=== PATIENT | male | born 1995 | race Caucasian/White ===

== ENCOUNTER 2020-12-21 10:45 | Emergency (ER) | payer BC ==
[~2020-12-21] VITALS: Ht 172.7 cm; Wt 85.0 kg
[~2020-12-21 10:45] MED LIST: CEPH-264 PO; HYDR-2761 PO; SULF1TAB23 PO
[2020-12-21] MEDS ORDERED: IV NORMAL SALINE 1000ML BAG 1,000 ML IV SCH (11:30)
[2020-12-21 11:47] LABS: BILIRUBIN,URINE SMALL (NEG); CLARITY,URINE CLEAR; COLOR,URINE AMBER; NITRITE,URINE NEGATIVE (NEG); PROTEIN,URINE NEGATIVE (NEG-TRACE); UROBILINOGEN,URINE 0.2 mg/dL (0.2 mg/dL)
--- NOTE | 2020-12-21 11:51 | RAD ---
EXAM: Chest, single view. HISTORY: Pain. COMPARISON: None. FINDINGS: A frontal view of the abdomen is obtained. There is a small amount of gas and stool within the colon. There is no evidence of bowel obstruction. IMPRESSION: Nonobstructive bowel gas pattern. Electronically signed by: Dinorah Robison MD (12/21/2020 11:49 AM) [id number]
[2020-12-21 11:57] LABS: BASO % 0 % (0-3); EOS % 0 % (0-3); HEMATOCRIT 48.2 % (39.0-53.0); HEMOGLOBIN 16.9 g/dL (13.0-17.5); LYMPH # 1.1 x10^3/uL (1.0-4.8); LYMPH % 12 % (24-48); MEAN CORPUSCULAR HEMOGLOBIN 31 pg (25-35); MEAN CORPUSCULAR HGB CONC 35 g/dL (31-37); MEAN CORPUSCULAR VOLUME 88 fL (79-100); MONO # 0.5 x10^3/uL (0.0-1.1); MONO % 6 % (0-9); NEUT % 81 % (31-73); PLATELET COUNT 198 x10^3/uL (140-400); RED BLOOD COUNT 5.48 x10^6/uL (4.30-5.70); RED CELL DISTRIBUTION WIDTH 12.8 % (11.5-14.5); WHITE BLOOD COUNT 8.6 x10^3/uL (4.0-11.0)
[2020-12-21] MEDS ORDERED: MORPHINE SULFATE 4 MG/ML VIAL. IV ONE (12:00)
[2020-12-21] MEDS ORDERED: ONDANSETRON PF 4 MG/2 ML VIAL. IVP ONE (12:00)
[2020-12-21 12:08] LABS: BACTERIA,URINE 0 /HPF (0-FEW); RBC,URINE 0 /HPF (0-2); WBC,URINE OCC /HPF (0-4)
[2020-12-21 12:10] LABS: CALCIUM 9.6 mg/dL (8.5-10.1); CREATININE 1.1 mg/dL (0.7-1.3); POTASSIUM 4.1 mmol/L (3.5-5.1)
[2020-12-21 12:17] LABS: ALBUMIN/GLOBULIN RATIO 1.9 (1.0-1.7); TOTAL BILIRUBIN 1.4 mg/dL (0.2-1.0); TOTAL PROTEIN 7.6 g/dL (6.4-8.2)
[2020-12-21] MEDS ORDERED: IOHEXOL 300 MG/ML 100ML VIAL. IV ONE (12:45)
[2020-12-21] MEDS ORDERED: CONTRAST GIVEN. MC PRN (13:00)
--- NOTE | 2020-12-21 13:39 | RAD ---
EXAM: Abdomen and pelvis CT with intravenous contrast. HISTORY: Right lower quadrant pain. TECHNIQUE: Computed tomographic images of the abdomen and pelvis were obtained following the administ ration of intravenous contrast. Multiplanar reformatting was performed. *One or more of the following individualized dose reduction techniques were utilized for this examina tion: 1. Automated exposure control. 2. Adjustment of the mA and/or kV according to patient size. 3. Use of iterative reconstruction technique. COMPARISON: None. FINDINGS: Evaluation of the lower thorax demonstrates left greater than right lower lobe atelectasis. There are few tiny 1 to 2 mm nodules within the right middle and lower lobes which are likely benign . No suspicious nodule is seen. No hepatic lesion is seen. The gallbladder, pancreas, stomach and adrenal glands are unremarkable. Th e spleen is upper normal in size. The kidneys are unremarkable. There is no appendicitis. There is no bowel obstruction. There is no abnormal bowel wall thickening. The bladder is unremarkable. The aorta is normal in caliber. There is no lymphadenopathy. There is no suspicious osseous lesion. IMPRESSION: No acute abdominal or pelvic finding. Electronically signed by: Dinorah Robison MD (12/21/2020 1:37 PM) [id number]
[2020-12-21] MEDS ORDERED: IV NORMAL SALINE 1000ML BAG 1,000 ML IV ONE (14:00)
[2020-12-21] MEDS ORDERED: ONDA4TAB7 PO (14:44)
--- NOTE | 2020-12-21 14:44 | PHYS DOC ---
Past Medical History Past Medical History: Other Additional Past Medical Histor: covid; vomiting Past Surgical History: No Surgical History Smoking Status: Current Some Day Smoker Alcohol Use: Occasionally Adult General Chief Complaint Chief Complaint: ABDOMINAL PAIN HPI HPI Patient is a 25 year old male with no significant past med history presents emergency department complaining of new onset of abdominal pain. Patient states that over the last 3 days he developed worsening sensation of pain in the right lower quadrant. This has been associated with subjective fever, intractable vomiting that has worsened over the last 24 hours and constipation. Denies any history of similar symptoms. Denies any chest pain or shortness of breath Review of Systems Review of Systems Constitutional: Denies fever or chills [] Eyes: Denies change in visual acuity, redness, or eye pain [] HENT: Denies nasal congestion or sore throat [] Respiratory: Denies cough or shortness of breath [] Cardiovascular: No additional information not addressed in HPI [] GI: Denies abdominal pain, nausea, vomiting, bloody stools or diarrhea [] : Denies dysuria or hematuria [] Musculoskeletal: Denies back pain or joint pain [] Integument: Denies rash or skin lesions [] Neurologic: Denies headache, focal weakness or sensory changes [] Endocrine: Denies polyuria or polydipsia [] All other systems were reviewed and found to be within normal limits, except as documented in this note. Current Medications Current Medications Current Medications Medications (Trade) Dose Ordered Sig/Kris Start Time Stop Time Status Last Admin Dose Admin Info (CONTRAST GIVEN -- Rx MONITORING) 1 each PRN DAILY PRN 12/21/20 13:00 12/23/20 12:59 Iohexol (Omnipaque 300 Mg/ml) 75 ml 1X ONCE 12/21/20 12:45 12/21/20 12:46 DC 12/21/20 12:45 75 ML Ketorolac Tromethamine (Toradol 15mg Vial) 15 mg 1X ONCE 12/21/20 14:45 12/21/20 14:46 UNV Morphine Sulfate (Morphine Sulfate) 4 mg 1X ONCE 12/21/20 12:00 12/21/20 12:01 DC 12/21/20 12:13 4 MG Ondansetron HCl (Zofran) 4 mg 1X ONCE 12/21/20 12:00 12/21/20 12:01 DC 12/21/20 12:12 4 MG Sodium Chloride 1,000 ml @ 1,000 mls/hr 1X ONCE 12/21/20 14:00 12/21/20 14:59 12/21/20 14:31 1,000 MLS/HR Allergies Allergies Allergies Coded Allergies Type Severity Reaction Last Updated Verified No Known Drug Allergies 03/19/14 No Physical Exam Physical Exam Constitutional: Well developed, well nourished, no acute distress, non-toxic appearance. [] HENT: Normocephalic, atraumatic, bilateral external ears normal, oropharynx moist, no oral exudates, nose normal. [] Eyes: PERRLA, EOMI, conjunctiva normal, no discharge. [] Neck: Normal range of motion, no tenderness, supple, no stridor. [] Cardiovascular:Heart rate regular rhythm, no murmur [] Lungs & Thorax: Bilateral breath sounds clear to auscultation [] Abdomen: Bowel sounds normal, soft, mild right lower quadrant abdominal tenderness with rebound, no masses, no pulsatile masses. [] Skin: Warm, dry, no erythema, no rash. [] Back: No tenderness, no CVA tenderness. [] Extremities: No tenderness, no cyanosis, no clubbing, ROM intact, no edema. [] Neurologic: Alert and oriented X 3, normal motor function, normal sensory function, no focal deficits noted. [] Psychologic: Affect normal, judgement normal, mood normal. [] Current Patient Data Vital Signs Vital Signs Date Time Temp Pulse Resp B/P (MAP) Pulse Ox O2 Delivery O2 Flow Rate FiO2 12/21/20 12:13 16 98 Room Air 12/21/20 11:00 98.4 65 145/89 (107) 98.4 Lab Values Laboratory Tests Test 12/21/20 11:10 12/21/20 11:45 Urine Collection Type Unknown Urine Color Valentina Urine Clarity Clear Urine pH 6.0 (<5.0-8.0) Urine Specific [place] >=1.030 (1.000-1.030) Urine Protein Negative mg/dL (NEG-TRACE) Urine Glucose (UA) Negative mg/dL (NEG) Urine Ketones (Stick) >=80 mg/dL (NEG) Urine Blood Negative (NEG) Urine Nitrite Negative (NEG) Urine Bilirubin Small (NEG) Urine Urobilinogen Dipstick 0.2 mg/dL (0.2 mg/dL) Urine Leukocyte Esterase Negative (NEG) Urine RBC 0 /HPF (0-2) Urine WBC Occ /HPF (0-4) Urine Squamous Epithelial Cells Occ /LPF Urine Bacteria 0 /HPF (0-FEW) White Blood Count 8.6 x10^3/uL (4.0-11.0) Red Blood Count 5.48 x10^6/uL (4.30-5.70) Hemoglobin 16.9 g/dL (13.0-17.5) Hematocrit 48.2 % (39.0-53.0) Mean Corpuscular Volume 88 fL (79-100) Mean Corpuscular Hemoglobin 31 pg (25-35) Mean Corpuscular Hemoglobin Concent 35 g/dL (31-37) Red Cell Distribution Width 12.8 % (11.5-14.5) Platelet Count 198 x10^3/uL (140-400) Neutrophils (%) (Auto) 81 % (31-73) H Lymphocytes (%) (Auto) 12 % (24-48) L Monocytes (%) (Auto) 6 % (0-9) Eosinophils (%) (Auto) 0 % (0-3) Basophils (%) (Auto) 0 % (0-3) Neutrophils # (Auto) 7.0 x10^3/uL (1.8-7.7) Lymphocytes # (Auto) 1.1 x10^3/uL (1.0-4.8) Monocytes # (Auto) 0.5 x10^3/uL (0.0-1.1) Eosinophils # (Auto) 0.0 x10^3/uL (0.0-0.7) Basophils # (Auto) 0.0 x10^3/uL (0.0-0.2) Sodium Level 143 mmol/L (136-145) Potassium Level 4.1 mmol/L (3.5-5.1) Chloride Level 104 mmol/L (98-107) Carbon Dioxide Level 25 mmol/L (21-32) Anion Gap 14 (6-14) Blood Urea Nitrogen 19 mg/dL (8-26) Creatinine 1.1 mg/dL (0.7-1.3) Estimated GFR (Cockcroft-Gault) 83.0 BUN/Creatinine Ratio 17 (6-20) Glucose Level 96 mg/dL (70-99) Calcium Level 9.6 mg/dL (8.5-10.1) Total Bilirubin 1.4 mg/dL (0.2-1.0) H Aspartate Amino Transferase (AST) 18 U/L (15-37) Alanine Aminotransferase (ALT) 30 U/L (16-63) Alkaline Phosphatase 72 U/L (46-116) Creatine Kinase 88 U/L (39-308) Total Protein 7.6 g/dL (6.4-8.2) Albumin 5.0 g/dL (3.4-5.0) Albumin/Globulin Ratio 1.9 (1.0-1.7) H Lipase 164 U/L (73-393) Laboratory Tests 12/21/20 11:45 Laboratory Tests 12/21/20 11:45 EKG EKG [] Radiology/Procedures Radiology/Procedures [] Course & Med Decision Making Course & Med Decision Making Pertinent Labs and Imaging studies reviewed. (See chart for details) 25M presenting the emergency department for new onset of right lower quadrant abdominal pain with rebound at the time which does raise concern for acute appendicitis. Obtain labs and determine need for CT scan. Patient initial evaluation of blood work was negative however there is no significant improvement with IV pain medications. CT scan without any evidence of acute appendicitis or other significant intra-abdominal pathology. An extensive discussion with the patient and at this time will discharge home with course of [place] and PCP follow-up Tyree Disclaimer Dragon Disclaimer This electronic medical record was generated, in whole or in part, using a voice recognition dictation system. Departure Departure Impression: Primary Impression: Mesenteric adenitis Additional Impression: Gastroenteritis Disposition: HOME / SELF CARE / HOMELESS Condition: GOOD Referrals: DENISE BYERS MD (PCP) Patient Instructions: Abdominal Pain, Mesenteric Adenitis, Viral Gastroenteritis Additional Instructions: EMERGENCY DEPARTMENT GENERAL DISCHARGE INSTRUCTIONS Thank you for coming to [facility] Emergency Department (ED) today and trusting us with you care. We trust that you had a positive experience in our Emergency Department. If you wish to speak to the department management, you may call the Director at [phone]. YOUR FOLLOW UP INSTRUCTIONS ARE FOLLOWS: 1. Do you have a private Doctor? If you do not have a private doctor, please ask for a resource list of physicians or clinics that may be able to assist you with follow up care. 2. The Emergency Physicain has interpreted your x-rays. The X-Ray specialist will also review them. If there is a change in the findings, you will be notified in 48 hours when at all possible. 3. A lab test or culture has been done, your results will be reviewed and you will be notified if you need a change in treatment. ADDITIONAL INSTRUCTIONS AND INFORMATION: 1. Your care today has been supervised by a physician who is specially trained in emergency care. Many problems require more than one evaluation for a complete diagnosis and treatment. We recommend that you schedule your follow up appointment as recommended to ensure complete treatment of you illness or injury. If you are unable to obtain follow up care and continue to have a problem, or if your condition worsens, we recommend that you return to the ED. 2. We are not able to safely determine your condition over the phone nor are we able to give sound medical advice over the phone. For these safety reasons, if you call for medical advice we will ask you to come to the ED for further evaluation. 3. If you have any questions regarding these discharge instructions please call the ED at [phone]. SAFETY INFORMATION: In the interest of safety, wellness, and injury prevention; we encourage you to wear your sealbelt, if you smoke; quite smoking, and we encourage family to use a protective helmet for bicycling and other sporting events that present an increased risk for head injury. IF YOUR SYMPTOMS WORSEN OR NEW SYMPTOMS DEVELOP, OR YOU HAVE CONCERNS ABOUT YOUR CONDITION; OR IF YOUR CONDITION WORSENS WHILE YOU ARE WAITING FOR YOUR FOLLOW UP APPOINTMENT; EITHER CONTACT YOUR PRIMARY CARE DOCTOR, THE PHYSICIAN WHOSE NAME AND NUMBER YOU WERE GIVEN, OR RETURN TO THE ED IMMEDIATELY. Scripts Ondansetron Hcl (ZOFRAN) 4 Mg Tablet 1 TAB PO PRN Q6-8HRS for nausea, #12 TAB Prov: MELISSA LIM MD 12/21/20 Problem Qualifiers MELISSA LIM MD Dec 21, 2020 14:44
[2020-12-21] MEDS ORDERED: KETOROLAC 15 MG/ML VIAL. IVP ONE (15:00)
[2020-12-21 15:06] VITALS: BP 118/61
== END 2020-12-21 15:13 | disposition home or self-care (01) ==
LOC: ER 10:45
DX: I88.0 Nonspecific mesenteric lymphadenitis (principal); K52.9 Noninfective gastroenteritis and colitis, unspecified; R20.2 Paresthesia of skin; R10.31 Right lower quadrant pain; Z87.891 Personal history of nicotine dependence
CPT/HCPCS: 36415; 74018; 74177; 80053; 81001; 82550; 83690; 85025; 96361; 96374; 96375; 99285; J1885; J2270; J2405; J7030; Q9967

== ENCOUNTER 2021-05-16 17:29 | Inpatient (IN) | payer BC ==
[~2021-05-16] VITALS: Ht 182.9 cm; Wt 89.1 kg
[2021-05-16] VITALS (7 sets, daily range): BP systolic 113–157; BP diastolic 59–81
[~2021-05-16 17:29] MED LIST changes: +ONDA4TAB7 PO
[2021-05-16] MEDS ORDERED: PROPOFOL 100 ML IV ONE (17:53)
[2021-05-16 17:55] LABS: BASO # 0.1 x10^3/uL (0.0-0.2); BASO % 1 % (0-3); EOS # 0.4 x10^3/uL (0.0-0.7); EOS % 3 % (0-3); HEMATOCRIT 43.9 % (39.0-53.0); HEMOGLOBIN 15.1 g/dL (13.0-17.5); LYMPH # 4.5 x10^3/uL (1.0-4.8); LYMPH % 42 % (24-48); MEAN CORPUSCULAR HEMOGLOBIN 31 pg (25-35); MEAN CORPUSCULAR HGB CONC 34 g/dL (31-37); MEAN CORPUSCULAR VOLUME 91 fL (79-100); MONO % 9 % (0-9); NEUT # 4.7 x10^3/uL (1.8-7.7); NEUT % 45 % (31-73); PLATELET COUNT 198 x10^3/uL (140-400); RED BLOOD COUNT 4.81 x10^6/uL (4.30-5.70); RED CELL DISTRIBUTION WIDTH 13.4 % (11.5-14.5); WHITE BLOOD COUNT 10.6 x10^3/uL (4.0-11.0)
[2021-05-16] MEDS: PROPOFOL 100 ML IV PRN ×2 (17:59→22:27)
[2021-05-16] MEDS ORDERED: MIDAZOLAM 100mg/100ml NS BAG 100 ML IV ONE (18:00)
[2021-05-16] MEDS ORDERED: IV NORMAL SALINE 1000ML BAG 1,000 ML IV ONE ×2 (18:00→19:30)
[2021-05-16] MEDS ORDERED: fentaNYL PF VIAL 100 MCG/2 ML VIAL IVP ONE (18:00)
[2021-05-16 18:05] LABS: CREATININE 1.5 mg/dL (0.7-1.3); POTASSIUM 3.6 mmol/L (3.5-5.1)
[2021-05-16 18:11] LABS: ALBUMIN 3.5 g/dL (3.4-5.0); ALBUMIN/GLOBULIN RATIO 1.2 (1.0-1.7); TOTAL BILIRUBIN 0.3 mg/dL (0.2-1.0); TOTAL PROTEIN 6.4 g/dL (6.4-8.2)
[2021-05-16 18:12] LABS: ACETAMIN < 2 mcg/ml (10-30); ETHANOL < 10 mg/dL (0-10); SALIC < 2.8 mg/dL (2.8-20.0)
--- NOTE | 2021-05-16 18:12 | RAD ---
XR CHEST 1V History: Reason: et tube placement / Spl. Instructions: / History: Comparison: None. Findings: Endotracheal tube with tip 5.3 cm above the marco antonio. Enteric tube looped within the stomach. Moderate diffuse pulmonary opacities. No pleural effusion. No pneumothorax. Normal heart size. Gaseous distent ion of the stomach partially imaged. Impression: 1. Status post intubation and placement of enteric tube. 2. Moderate diffuse pulmonary opacities, may represent pulmonary edema or pneumonia including viral pneumonia. 3. Gaseous distention of the stomach partially imaged. Electronically signed by: Christian Campa DO (05/16/2021 6:09 PM) [facility]
[2021-05-16] MEDS ORDERED: ONDANSETRON PF 4 MG/2 ML VIAL. IVP ONE (18:15)
[2021-05-16] MEDS ORDERED: CALCIUM GLUCONATE 1,000 MG/10 ML VIAL. IVP ONE (18:15)
[2021-05-16] MEDS ORDERED: MIDAZOLAM HCL/PF 5 MG/5 ML VIAL. ONE (18:25)
[2021-05-16] MEDS ORDERED: ETOMIDATE 20 MG/10 ML VIAL. IV ONE ×2 (18:25→18:30)
[2021-05-16] MEDS ORDERED: SUCCINYLCHOLINE 200 MG/10 ML VIAL. ONE (18:26)
--- NOTE | 2021-05-16 18:26 | PHYS DOC ---
Past Medical History Past Medical History: Other Additional Past Medical Histor: covid; vomiting (YURI WHITE DO) Past Surgical History: No Surgical History (YURI WHITE DO) Smoking Status: Current Some Day Smoker Alcohol Use: Occasionally (YURI WHITE DO) General Adult EDM: Chief Complaint: ALTERED MENTAL STATUS HPI: HPI: 25-year-old male with reported history of drug abuse, recent Covid presents to the emergency department with altered mental state. Reportedly bystanders noticed that he was unresponsive, they started CPR. When EMS arrived they were able to feel a pulse on the patient and CPR was ceased. Patient was transferred to the emergency department with a nonrebreather in place with a GCS of 3 in the field. He is unable to provide a history due to his clinical condition. Per EMS, bystanders also reported that the patient was digging a trench earlier today. Per EMS and police were present in the emergency department there is no further history on this patient. (YURI WHITE DO) Review of Systems: Review of Systems: Further review of systems is unobtainable secondary to the patient's clinical condition (YURI WHITE DO) Heart Score: C/O Chest Pain: N/A (YURI WHITE DO) Current Medications: Current Medications Medications (Trade) Dose Ordered Sig/Kris Start Time Stop Time Status Last Admin Dose Admin Calcium Gluconate (Calcium Gluconate) 2,000 mg 1X ONCE 05/16/21 18:15 05/16/21 18:16 DC Fentanyl Citrate (Fentanyl 2ml Vial) 100 mcg 1X ONCE 05/16/21 18:00 05/16/21 18:01 DC Midazolam HCl 100 ml @ 1 mls/hr 1X ONCE 05/16/21 18:00 05/20/21 21:59 Ondansetron HCl (Zofran) 4 mg 1X ONCE 05/16/21 18:15 05/16/21 18:16 DC Propofol 100 ml @ As Directed STK-MED ONCE 05/16/21 17:53 05/16/21 17:53 DC Sodium Chloride 1,000 ml @ 1,000 mls/hr 1X ONCE 05/16/21 18:00 05/16/21 18:59 (YURI WHITE DO) Allergies: Allergies: Allergies Coded Allergies Type Severity Reaction Last Updated Verified No Known Drug Allergies 7/22/14 No (BROWN,YURI M DO) Physical Exam: PE: Constitutional: Unresponsive, gurgling respirations. HENT: Atraumatic, bilateral external ears normal, nose normal. Eyes: Dilated pupils and equal bilaterally, normal conjunctiva, Neck: No signs of neck trauma. Cardiovascular: Tachycardic pulses, 1+ radial pulses Lungs & Thorax: Severe respiratory distress, gurgling respirations, appears to not be protecting airway. Bilateral breath sounds are equal Abdomen: Soft, no tenderness nondistended Skin: Warm, dry. Extremities: No signs of trauma, no cyanosis. Neurologic: GCS 3, nonresponse (YURI WHITE DO) Current Patient Data: Labs: Laboratory Tests Test 05/16/21 17:41 White Blood Count 10.6 x10^3/uL (4.0-11.0) Red Blood Count 4.81 x10^6/uL (4.30-5.70) Hemoglobin 15.1 g/dL (13.0-17.5) Hematocrit 43.9 % (39.0-53.0) Mean Corpuscular Volume 91 fL (79-100) Mean Corpuscular Hemoglobin 31 pg (25-35) Mean Corpuscular Hemoglobin Concent 34 g/dL (31-37) Red Cell Distribution Width 13.4 % (11.5-14.5) Platelet Count 198 x10^3/uL (140-400) Neutrophils (%) (Auto) 45 % (31-73) Lymphocytes (%) (Auto) 42 % (24-48) Monocytes (%) (Auto) 9 % (0-9) Eosinophils (%) (Auto) 3 % (0-3) Basophils (%) (Auto) 1 % (0-3) Neutrophils # (Auto) 4.7 x10^3/uL (1.8-7.7) Lymphocytes # (Auto) 4.5 x10^3/uL (1.0-4.8) Monocytes # (Auto) 1.0 x10^3/uL (0.0-1.1) Eosinophils # (Auto) 0.4 x10^3/uL (0.0-0.7) Basophils # (Auto) 0.1 x10^3/uL (0.0-0.2) Sodium Level 139 mmol/L (136-145) Potassium Level 3.6 mmol/L (3.5-5.1) Chloride Level 105 mmol/L (98-107) Carbon Dioxide Level 28 mmol/L (21-32) Anion Gap 6 (6-14) Blood Urea Nitrogen 20 mg/dL (8-26) Creatinine 1.5 mg/dL (0.7-1.3) H Estimated GFR (Cockcroft-Gault) 58.0 BUN/Creatinine Ratio 13 (6-20) Glucose Level 244 mg/dL (70-99) H Lactic Acid Level 2.8 mmol/L (0.4-2.0) H Calcium Level 8.0 mg/dL (8.5-10.1) L Total Bilirubin 0.3 mg/dL (0.2-1.0) Aspartate Amino Transferase (AST) 22 U/L (15-37) Alanine Aminotransferase (ALT) 64 U/L (16-63) H Alkaline Phosphatase 65 U/L (46-116) Creatine Kinase 150 U/L (39-308) Total Protein 6.4 g/dL (6.4-8.2) Albumin 3.5 g/dL (3.4-5.0) Albumin/Globulin Ratio 1.2 (1.0-1.7) Salicylates Level < 2.8 mg/dL (2.8-20.0) L Salicylate Last Dose Date Unknown Salicylate Last Dose Time Unknown Acetaminophen Level < 2 mcg/ml (10-30) L Acetaminophen Last Dose Date Unknown Acetaminophen Last Dose Time Unknown Ethyl Alcohol Level < 10 mg/dL (0-10) Laboratory Tests 05/16/21 17:41 Laboratory Tests 05/16/21 17:41 Vital Signs: Vital Signs Date Time Temp Pulse Resp B/P (MAP) Pulse Ox O2 Delivery O2 Flow Rate FiO2 05/16/21 17:45 92 Ventilator (YURI WHITE DO) EKG: EKG: peaked T waves no STEMI seen in initial EKG at 1800, 2 A of calcium gluconate were ordered (YURI WHITE DO) Radiology/Procedures: Radiology/Procedures: XR CHEST 1V History: Reason: et tube placement / Spl. Instructions: / History: Comparison: None. Findings: Endotracheal tube with tip 5.3 cm above the marco antonio. Enteric tube looped within the stomach. Moderate diffuse pulmonary opacities. No pleural effusion. No pneumothorax. Normal heart size. Gaseous distention of the stomach partially imaged. Impression: 1. Status post intubation and placement of enteric tube. 2. Moderate diffuse pulmonary opacities, may represent pulmonary edema or pneumonia including viral pneumonia. 3. Gaseous distention of the stomach partially imaged. Electronically signed by: Christian Campa DO (05/16/2021 6:09 PM) (YURI WHITE DO) Course & Med Decision Making: Course & Med Decision Making Patient obviously required intubation when he came to the emergency department, his vitals are stable but he was GCS 3, appeared not to be protecting his airway. Etomidate and succinylcholine were used for intubation. ET tube is in appropriate position on chest x-ray, good end-tidal CO2 change, bilateral equal breath sounds, OG in good position. Patient was started on Versed and propofol infusion, as needed fentanyl was ordered. Patient will be admitted to the ICU under Dr. Painter who was at the bedside after intubation. Further work-up is still pending. Intubation Procedure Confirmed: patient, procedure, adjuncts and backup supplies in room. Performed by: selfYuri DO. Informed consent: not signed due to emergency circumstance. Indication: Acute respiratory failure, airway protection. Medications given: Etomidate and succinylcholine Preparation: oxygenated with 100% oxygen prior to intubation with BVM/non-r ebreather, NC in place during whole intubation procedure, positioning of patient, cardiac monitoring during procedure. Technique: Video laryngoscopy performed with S4 blade, rapid sequence used, 7.5 cuffed tube placed in trachea, secured at 24 cm at the teeth. Confirmation of position: with auscultation of bilateral breath sounds, with ETCO2 capnometry, with chest x-ray showing ET tube above marco antonio. Findings: cords visualized without difficulty, normal airway, Passed ET tube without difficulty, visualized ET tube going into cords. Procedure tolerated: well. Complications at the time of the procedure: None. Critical care time was 60 minutes which includes time at bedside, spent in discussion of patient's care with specialists and/or family members, with interpretation of laboratory and/or radiological studies and is exclusive of procedures. 6 PM: Transfer of care to Dr. Coburn at this time Patient's current medical course discussed in rounds and patient is currently updated with medical plan Pending diagnostics, ICU admission (YURI WHITE DO) Course & Med Decision Making Patient evaluated and treated and admitted to the hospital by the previous provider- Dr White. Hospitalist has evaluated the patient in the ER. Several labs and radiologic imaging pending prior to patient going to the ICU. I did review patients labs and radiologic imaging. I did briefly evaluation the patient--- currently intubated. Patient is in critical condition. (SENA COBURN DO) Departure Departure Impression: Primary Impression: Respiratory failure Additional Impression: Altered mental state Disposition: ADMITTED INPATIENT (ICU) Admitting Physician: TIFFANY (ICU) (YURI WHITE DO) Condition: CRITICAL Referrals: MEGAN WOLF (PCP) YURI WHITE DO May 16, 2021 18:26 SEAN COBURN DO May 16, 2021 23:38
[2021-05-16] MEDS ORDERED: SUCCINYLCHOLINE 200 MG/10 ML VIAL. IV ONE (18:30)
[2021-05-16 18:31] LABS: BILIRUBIN,URINE NEGATIVE (NEG); CLARITY,URINE CLEAR; COLOR,URINE YELLOW; NITRITE,URINE NEGATIVE (NEG); PH,URINE 5.5 (<5.0-8.0); PROTEIN,URINE 30 mg/dL (NEG-TRACE); UROBILINOGEN,URINE 0.2 mg/dL (0.2 mg/dL)
[2021-05-16 18:38] LABS: AMPHETAMINE/METHAMPHETAMINE NEG (NEG); BARBITURATES NEG (NEG); BENZODIAZEPINES POS (NEG); CANNABINOIDS POS (NEG); COCAINE POS (NEG); METHADONE NEG (NEG); OPIATES NEG (NEG); PHENCYCLIDINE NEG (NEG)
[2021-05-16 18:47] LABS: BACTERIA,URINE 0 /HPF (0-FEW); HYALINE CASTS, URINE MODERATE /HPF; WBC,URINE 0 /HPF (0-4)
[2021-05-16] MEDS ORDERED: DEXTROSE 50% 25 GM / 50ML DISP.SYRIN. IV PRN (19:30)
[2021-05-16] MEDS ORDERED: DEXAMETHASONE SOD PHOS 4 MG/ML VIAL IVP ONE (19:30)
[2021-05-16] MEDS ORDERED: cefTRIAXone IV Push 1 GM VIAL. IVP SCH (19:30)
--- NOTE | 2021-05-16 19:40 | PDOC1 ---
History and Physical Date of Admission Date of Admission DATE: 05/16/21 TIME: 19:06 Identification/Chief Complaint Chief Complaint Cardiopulmonary arrest, benzodiazepine overdose Source Source: Chart review History of Present Illness History of Present Illness Patient is a 25-year-old male with reported past medical history drug abuse, and recent COVID-19 who presents to the ED after being found unresponsive by bystanders. Upon EMS arrival CPR had been started, but when pulses were checked ROSC been obtained and CPR was ceased. Upon arrival to ED he was saturating 83% on nonrebreather with GCS 3. UDS positive for benzodiazepines, cocaine, and cannabis. Chest x-ray showed moderate diffuse pulmonary opacities, which may represent pulmonary edema or pneumonia including viral pneumonia. Labs in the ED showed creatinine 1.5, lactic acid 2.8, WBC 10.6. He required intubation in ER due to hypoxia and not protecting his airway. Initiated on propofol, Versed, and as needed fentanyl. Admit patient to ICU for further medical management. Past Medical History Past Medical History COVID-19 Past Surgical History Past Surgical History Unable to obtain at this time due to clinical condition Family History Family History Unable to obtain at this time due to clinical condition Social History Smoke: <1 pack per day ALCOHOL: occassional Drugs: Other (Benzodiazepine abuse) Current Problem List Problem List Problems Medical Problems: (1) Altered mental state Status: Acute (2) Respiratory failure Status: Acute Current Medications Current Medications Current Medications Fentanyl Citrate (Fentanyl 2ml Vial) 100 mcg 1X ONCE IVP Last administered on 05/16/21at 17:45; Start 05/16/21 at 18:00; Stop 05/16/21 at 18:01; Status DC Sodium Chloride 1,000 ml @ 1,000 mls/hr 1X ONCE IV Last administered on 05/16/21at 17:40; Start 05/16/21 at 18:00; Stop 05/16/21 at 18:59; Status DC Propofol 100 ml @ As Directed STK-MED ONCE IV ; Start 05/16/21 at 17:53; Stop 05/16/21 at 17:53; Status DC Midazolam HCl 100 ml @ 1 mls/hr 1X ONCE IV Last administered on 05/16/21at 18:19; Start 05/16/21 at 18:00; Stop 05/20/21 at 21:59 Calcium Gluconate (Calcium Gluconate) 2,000 mg 1X ONCE IVP Last administered on 05/16/21at 18:12; Start 05/16/21 at 18:15; Stop 05/16/21 at 18:16; Status DC Ondansetron HCl (Zofran) 4 mg 1X ONCE IVP ; Start 05/16/21 at 18:15; Stop 05/16/21 at 18:16; Status DC Etomidate (Amidate) 20 mg STK-MED ONCE IV ; Start 05/16/21 at 18:25; Stop 05/16/21 at 18:25; Status DC Midazolam HCl (Versed) 5 mg STK-MED ONCE .ROUTE ; Start 05/16/21 at 18:25; Stop 05/16/21 at 18:25; Status DC Succinylcholine Chloride (Anectine) 200 mg STK-MED ONCE .ROUTE ; Start 05/16/21 at 18:26; Stop 05/16/21 at 18:26; Status DC Etomidate (Amidate) 30 mg 1X ONCE IV Last administered on 05/16/21at 17:41; Start 05/16/21 at 18:30; Stop 05/16/21 at 18:31; Status DC Succinylcholine Chloride (Anectine) 100 mg 1X ONCE IV Last administered on 05/16/21at 17:41; Start 05/16/21 at 18:30; Stop 05/16/21 at 18:31; Status DC Active Scripts Active Zofran (Ondansetron Hcl) 4 Mg Tablet 1 Tab PO PRN Q6-8HRS Reported Hydrocodone-Apap 5-325 (Hydrocodone Bit/Acetaminophen) 1 Each Tablet 1 Tab PO PRN Q6HRS Bactrim 400-80 Mg Tablet (Sulfamethoxazole/Trimethoprim) 1 Each Tablet 2 Each PO BID Keflex (Cephalexin) 500 Mg Capsule 500 Mg PO QID Allergies Allergies: Coded Allergies: No Known Drug Allergies (Unverified , 03/19/14) ROS Review of System Unable to obtain at this time due to clinical condition Physical Exam Physical Exam General: Unresponsive, moderate distress HEENT: PERRLA Lungs: Severe respiratory distress, gurgling respirations Heart: Tachycardic, no murmurs Cardiovascular: S1, S2 Abdomen: Normal bowel sounds, Soft, No tenderness Extremities: No clubbing, No cyanosis Skin: No rashes, No significant lesion Neuro: Normal speech, Normal tone, Sensation intact Psych/Mental Status: Unresponsive. GCS 3. Vitals Vitals Vital Signs Date Time Temp Pulse Resp B/P (MAP) Pulse Ox O2 Delivery O2 Flow Rate FiO2 05/16/21 18:12 98.7 125 36 156/94 (114) 83 NonRebreather Mask 98.7 Labs Labs Laboratory Tests Test 05/16/21 17:41 05/16/21 18:05 White Blood Count 10.6 x10^3/uL (4.0-11.0) Red Blood Count 4.81 x10^6/uL (4.30-5.70) Hemoglobin 15.1 g/dL (13.0-17.5) Hematocrit 43.9 % (39.0-53.0) Mean Corpuscular Volume 91 fL (79-100) Mean Corpuscular Hemoglobin 31 pg (25-35) Mean Corpuscular Hemoglobin Concent 34 g/dL (31-37) Red Cell Distribution Width 13.4 % (11.5-14.5) Platelet Count 198 x10^3/uL (140-400) Neutrophils (%) (Auto) 45 % (31-73) Lymphocytes (%) (Auto) 42 % (24-48) Monocytes (%) (Auto) 9 % (0-9) Eosinophils (%) (Auto) 3 % (0-3) Basophils (%) (Auto) 1 % (0-3) Neutrophils # (Auto) 4.7 x10^3/uL (1.8-7.7) Lymphocytes # (Auto) 4.5 x10^3/uL (1.0-4.8) Monocytes # (Auto) 1.0 x10^3/uL (0.0-1.1) Eosinophils # (Auto) 0.4 x10^3/uL (0.0-0.7) Basophils # (Auto) 0.1 x10^3/uL (0.0-0.2) Sodium Level 139 mmol/L (136-145) Potassium Level 3.6 mmol/L (3.5-5.1) Chloride Level 105 mmol/L (98-107) Carbon Dioxide Level 28 mmol/L (21-32) Anion Gap 6 (6-14) Blood Urea Nitrogen 20 mg/dL (8-26) Creatinine 1.5 mg/dL (0.7-1.3) Estimated GFR (Cockcroft-Gault) 58.0 BUN/Creatinine Ratio 13 (6-20) Glucose Level 244 mg/dL (70-99) Lactic Acid Level 2.8 mmol/L (0.4-2.0) Calcium Level 8.0 mg/dL (8.5-10.1) Total Bilirubin 0.3 mg/dL (0.2-1.0) Aspartate Amino Transf (AST/SGOT) 22 U/L (15-37) Alanine Aminotransferase (ALT/SGPT) 64 U/L (16-63) Alkaline Phosphatase 65 U/L (46-116) Creatine Kinase 150 U/L (39-308) Troponin I Quantitative < 0.017 ng/mL (0.000-0.055) Total Protein 6.4 g/dL (6.4-8.2) Albumin 3.5 g/dL (3.4-5.0) Albumin/Globulin Ratio 1.2 (1.0-1.7) Salicylates Level < 2.8 mg/dL (2.8-20.0) Salicylate Last Dose Date Unknown Salicylate Last Dose Time Unknown Acetaminophen Level < 2 mcg/ml (10-30) Acetaminophen Last Dose Date Unknown Acetaminophen Last Dose Time Unknown Ethyl Alcohol Level < 10 mg/dL (0-10) Urine Collection Type Unknown Urine Color Yellow Urine Clarity Clear Urine pH 5.5 (<5.0-8.0) Urine Specific [place] >=1.030 (1.000-1.030) Urine Protein 30 mg/dL (NEG-TRACE) Urine Glucose (UA) 500 mg/dL (NEG) Urine Ketones (Stick) Negative mg/dL (NEG) Urine Blood Negative (NEG) Urine Nitrite Negative (NEG) Urine Bilirubin Negative (NEG) Urine Urobilinogen Dipstick 0.2 mg/dL (0.2 mg/dL) Urine Leukocyte Esterase Negative (NEG) Urine RBC 3-5 /HPF (0-2) Urine WBC 0 /HPF (0-4) Urine Transitional Epithelial Cells Few /LPF Urine Bacteria 0 /HPF (0-FEW) Urine Hyaline Casts Moderate /HPF Urine Mucus Mod /LPF Urine Opiates Screen Neg (NEG) Urine Methadone Screen Neg (NEG) Urine Barbiturates Neg (NEG) Urine Phencyclidine Screen Neg (NEG) Urine Amphetamine/Methamphetamine Neg (NEG) Urine Benzodiazepines Screen Pos (NEG) Urine Cocaine Screen Pos (NEG) Urine Cannabinoids Screen Pos (NEG) Urine Ethyl Alcohol Neg (NEG) Laboratory Tests Test 05/16/21 17:41 05/16/21 18:05 White Blood Count 10.6 x10^3/uL (4.0-11.0) Red Blood Count 4.81 x10^6/uL (4.30-5.70) Hemoglobin 15.1 g/dL (13.0-17.5) Hematocrit 43.9 % (39.0-53.0) Mean Corpuscular Volume 91 fL (79-100) Mean Corpuscular Hemoglobin 31 pg (25-35) Mean Corpuscular Hemoglobin Concent 34 g/dL (31-37) Red Cell Distribution Width 13.4 % (11.5-14.5) Platelet Count 198 x10^3/uL (140-400) Neutrophils (%) (Auto) 45 % (31-73) Lymphocytes (%) (Auto) 42 % (24-48) Monocytes (%) (Auto) 9 % (0-9) Eosinophils (%) (Auto) 3 % (0-3) Basophils (%) (Auto) 1 % (0-3) Neutrophils # (Auto) 4.7 x10^3/uL (1.8-7.7) Lymphocytes # (Auto) 4.5 x10^3/uL (1.0-4.8) Monocytes # (Auto) 1.0 x10^3/uL (0.0-1.1) Eosinophils # (Auto) 0.4 x10^3/uL (0.0-0.7) Basophils # (Auto) 0.1 x10^3/uL (0.0-0.2) Sodium Level 139 mmol/L (136-145) Potassium Level 3.6 mmol/L (3.5-5.1) Chloride Level 105 mmol/L (98-107) Carbon Dioxide Level 28 mmol/L (21-32) Anion Gap 6 (6-14) Blood Urea Nitrogen 20 mg/dL (8-26) Creatinine 1.5 mg/dL (0.7-1.3) Estimated GFR (Cockcroft-Gault) 58.0 BUN/Creatinine Ratio 13 (6-20) Glucose Level 244 mg/dL (70-99) Lactic Acid Level 2.8 mmol/L (0.4-2.0) Calcium Level 8.0 mg/dL (8.5-10.1) Total Bilirubin 0.3 mg/dL (0.2-1.0) Aspartate Amino Transf (AST/SGOT) 22 U/L (15-37) Alanine Aminotransferase (ALT/SGPT) 64 U/L (16-63) Alkaline Phosphatase 65 U/L (46-116) Creatine Kinase 150 U/L (39-308) Troponin I Quantitative < 0.017 ng/mL (0.000-0.055) Total Protein 6.4 g/dL (6.4-8.2) Albumin 3.5 g/dL (3.4-5.0) Albumin/Globulin Ratio 1.2 (1.0-1.7) Salicylates Level < 2.8 mg/dL (2.8-20.0) Salicylate Last Dose Date Unknown Salicylate Last Dose Time Unknown Acetaminophen Level < 2 mcg/ml (10-30) Acetaminophen Last Dose Date Unknown Acetaminophen Last Dose Time Unknown Ethyl Alcohol Level < 10 mg/dL (0-10) Urine Collection Type Unknown Urine Color Yellow Urine Clarity Clear Urine pH 5.5 (<5.0-8.0) Urine Specific [place] >=1.030 (1.000-1.030) Urine Protein 30 mg/dL (NEG-TRACE) Urine Glucose (UA) 500 mg/dL (NEG) Urine Ketones (Stick) Negative mg/dL (NEG) Urine Blood Negative (NEG) Urine Nitrite Negative (NEG) Urine Bilirubin Negative (NEG) Urine Urobilinogen Dipstick 0.2 mg/dL (0.2 mg/dL) Urine Leukocyte Esterase Negative (NEG) Urine RBC 3-5 /HPF (0-2) Urine WBC 0 /HPF (0-4) Urine Transitional Epithelial Cells Few /LPF Urine Bacteria 0 /HPF (0-FEW) Urine Hyaline Casts Moderate /HPF Urine Mucus Mod /LPF Urine Opiates Screen Neg (NEG) Urine Methadone Screen Neg (NEG) Urine Barbiturates Neg (NEG) Urine Phencyclidine Screen Neg (NEG) Urine Amphetamine/Methamphetamine Neg (NEG) Urine Benzodiazepines Screen Pos (NEG) Urine Cocaine Screen Pos (NEG) Urine Cannabinoids Screen Pos (NEG) Urine Ethyl Alcohol Neg (NEG) Images Images PATIENT: SILVIA CAMPACCOUNT: [id number] : 1995 LOCATION: ER AGE: 25 SEX: M EXAM STATUS: PRE ER ORD. PHYSICIAN: ZACH MENA DO REASON: et tube placement PROCEDURE: CHEST AP ONLY XR CHEST 1V History: Reason: et tube placement / Spl. Instructions: / History: Comparison: None. Findings: Endotracheal tube with tip 5.3 cm above the marco antonio. Enteric tube looped within the stomach. Moderate diffuse pulmonary opacities. No pleural effusion. No pneumothorax. Normal heart size. Gaseous distention of the stomach partially imaged. Impression: 1. Status post intubation and placement of enteric tube. 2. Moderate diffuse pulmonary opacities, may represent pulmonary edema or pneumonia including viral pneumonia. 3. Gaseous distention of the stomach partially imaged. VTE Prophylaxis Ordered VTE Prophylaxis Devices: No VTE Pharmacological Prophylaxi: Yes Assessment/Plan Assessment/Plan Cardiopulmonary arrest Sepsis Benzodiazepine overdose COVID-19 PUI COVID-19 pneumonia? NIYAH due to vasomotor nephropathy Hyperglycemia Plan: Patient agreed to ICU on ventilator We will initiate Decadron and empiric antibiotics. COVID-19 pending. Results positive will initiate remdesivir and monitor daily LFTs. Blood cultures pending 1 L normal saline bolus in ER. We will continue IV fluids based on ideal body weight to complete sepsis fluid bolus. Monitor kidney function for improvement after IV fluids We will provide basal insulin and obtain hemoglobin A1c FEN - NPO PPX - Lovenox FULL CODE Dispo - inpatient for above No surrogate decision maker has been made at this time Critical care time 30 minutes spent reviewing charts, reviewing labs, imaging, and discussion with ER attending. Justifications for Admission Other Justification MATIAS ARAMBULA MD May 16, 2021 19:40
[2021-05-16] MEDS ORDERED: MORPHINE SULFATE 2 MG/ML INJ. IV PRN (19:45)
[2021-05-16] MEDS ORDERED: MAGNESIUM HYDROXIDE 2,400 MG/30 ML ORAL.SUSP. PO PRN (19:45)
[2021-05-16] MEDS ORDERED: MAG HYDROX/ALUMINUM HYD/SIMETH 30 ML ORAL.SUSP PO PRN (19:45)
[2021-05-16] MEDS ORDERED: fentaNYL PF VIAL 100 MCG/2 ML VIAL IV PRN (19:45)
[2021-05-16] MEDS ORDERED: 0.9 % SODIUM CHLORIDE 10 ML DISP.SYRIN. IV PRN (19:45)
[2021-05-16] MEDS ORDERED: PROCHLORPERAZINE 10 MG/2 ML VIAL. IVP PRN (19:45)
[2021-05-16] MEDS ORDERED: CALCIUM CARBONATE 500 MG TAB.CHEW PO PRN (19:45)
[2021-05-16] MEDS ORDERED: IOHEXOL 350 MG/ML 100 ML VIAL. IV ONE (20:15)
--- NOTE | 2021-05-16 20:39 | RAD ---
CT HEAD AND C-SPINE WO History: Altered mental status Comparison: None. Technique: Noncontrast CT of the head and cervical spine. Findings: CT HEAD: There is minimal appreciation of the sulci, however the the lateral ventricles and aquino-white differe ntiation are preserved. There is no hydrocephalus or midline shift. No extra-axial fluid collection. The visualized paranasal sinuses and mastoid air cells are clear. The skull and scalp are within normal limits. CT CERVICAL SPINE: Motion artifact limits evaluation of the cervical spine. There is no evidence for fracture in the cervical spine. Alignment is normal. Disc spaces are preserved. No destructive osseous lesions are seen. Endotracheal tube and gastric tubes are partially visualized. There are opacities throughout the visu alized upper lobes. Impression: 1. Limited examination due to motion artifact. 2. Minimal appreciation of the sulcal at the vertex with preserved ventricles likely represents norm al young patient brain volume, however early cerebral edema is not excluded. Consider repeat examinat ion when patient is able to hold still versus MRI for improved characterization. 3. No acute osseous abnormality in the cervical spine. ------- Exposure: One or more of the following individualized dose reduction techniques were utilized for thi s examination: 1. Automated exposure control 2. Adjustment of the mA and/or kV according to patient size 3. Use of iterative reconstruction technique. Electronically signed by: Mingo Jo MD (05/16/2021 8:36 PM) [facility]
--- NOTE | 2021-05-16 20:43 | RAD ---
CTA CHEST History: Respiratory failure. Comparison: Chest x-ray 05/16/2021. Technique: CTA of the pulmonary arteries with intravenous contrast. Multiplanar reconstruction includ ing MIPS are provided. Findings: Examination is limited by motion artifact. Pulmonary arteries: No pulmonary embolism is identified. For evaluation of the segmental and higher o rder pulmonary arteries. Aorta and great vessels: No aneurysm or dissection of the aortic arch or thoracic aorta is seen. Thyroid: No significant abnormalities. Mediastinum and linnea: No mediastinal masses or adenopathy is seen. Esophagus: Gastric tube courses through the esophagus and coils within the stomach. Heart: The heart is normal in size. There is no pericardial effusion. Airways, Lungs, Pleura: Endotracheal tube tip terminates approximately 4 cm above marco antonio. The airways are patent. There is extensive consolidation of the bilateral dependent lungs. Groundglass elsewhere throughout the lungs. No pleural effusion or pneumothorax. Upper abdomen: Limited evaluation of the upper abdomen is unremarkable. Osseous structures and soft tissues: Within normal limits for age. Impression: 1. No pulmonary embolism, aortic aneurysm or aortic dissection. 2. Extensive consolidation of the dependent lungs with groundglass elsewhere. Findings may represent infection with Covid pneumonia, pulmonary edema, ARDS or other multifocal infection. ------ Exposure: One or more of the following individualized dose reduction techniques were utilized for thi s examination: 1. Automated exposure control 2. Adjustment of the mA and/or kV according to patient size 3. Use of iterative reconstruction technique. Electronically signed by: Mingo Jo MD (05/16/2021 8:40 PM) [facility]
[2021-05-16] MEDS ORDERED: DOXYCYCLINE HYCLATE 100 MG in IV DEXTROSE 5% 100ML 100 ML IV SCH (21:00)
[2021-05-16] MEDS: ENOXAPARIN 40 MG/0.4 ML SYRINGE. SQ SCH (21:32)
[2021-05-16] MEDS: FAMOTIDINE 20 MG/2 ML VIAL IVP SCH (21:34)
[2021-05-16] MEDS: PIPERACILLIN/TAZOBACTAM 4.5 GM in IV NORMAL SALINE 100ML 100 ML IV SCH (21:36)
[2021-05-16] MEDS: INSULIN GLARGINE SYRINGE. SQ SCH (21:36)
[2021-05-16 21:53] LABS: C-REACTIVE PROTEIN 0.5 mg/L (0-3.3)
[2021-05-16 22:23] LABS: BASE EXCESS ABG -6 mmol/L (-3-3); HCO3 ABG 20 mmol/L (21-28); PCO2 ABG 42 mmHg (35-46); PO2 ABG 90 mmHg (85-108); SAT O2 ABG 97 % (92-99)
[2021-05-16 22:25] LABS: CORRECTED PCO2 ABG 43 mmHg; CORRECTED PH ABG 7.29; CORRECTED PO2 ABG 95 mmHg
[2021-05-16 22:34] LABS: FIO2 ABG 100
--- NOTE | 2021-05-16 23:53 | NUR ---
Zosyn not administered in ED. Infusion initiated at 2215. Consulted with pharmacist, will hold 0000 dose and administer 0600 dose on time.
[2021-05-17] VITALS (24 sets, daily range): BP systolic 91–117; BP diastolic 46–71
[2021-05-17] MEDS: PROPOFOL 100 ML IV PRN ×5 (01:40→20:14)
[2021-05-17] MEDS: MIDAZOLAM 100mg/100ml NS BAG 100 ML IV PRN ×2 (02:17→13:11)
[2021-05-17 05:41] LABS: BASO % 0 % (0-3); EOS % 0 % (0-3); HEMATOCRIT 46.4 % (39.0-53.0); LYMPH # 0.5 x10^3/uL (1.0-4.8); LYMPH % 4 % (24-48); MEAN CORPUSCULAR HEMOGLOBIN 31 pg (25-35); MEAN CORPUSCULAR HGB CONC 35 g/dL (31-37); MEAN CORPUSCULAR VOLUME 91 fL (79-100); MONO # 0.9 x10^3/uL (0.0-1.1); MONO % 8 % (0-9); NEUT # 9.7 x10^3/uL (1.8-7.7); NEUT % 87 % (31-73); PLATELET COUNT 165 x10^3/uL (140-400); RED BLOOD COUNT 5.11 x10^6/uL (4.30-5.70); RED CELL DISTRIBUTION WIDTH 13.3 % (11.5-14.5); WHITE BLOOD COUNT 11.1 x10^3/uL (4.0-11.0)
[2021-05-17 05:48] LABS: CALCIUM 8.8 mg/dL (8.5-10.1); CREATININE 1.4 mg/dL (0.7-1.3); GFR 62.8
[2021-05-17] MEDS: PIPERACILLIN/TAZOBACTAM 4.5 GM in IV NORMAL SALINE 100ML 100 ML IV SCH ×5 (06:19→23:34)
--- NOTE | 2021-05-17 06:55 | NUR ---
Pt. admitted to ICU room 115 from ED, arrived to unit on cart. Transferred to ICU bed and placed on vent by RT. Pt's father allowed to visit and view pt. through doors. Stated that pt. had COVID in February.
[2021-05-17] MEDS: INSULIN LISPRO 300 UNITS/3 ML VIAL. SQ SCH ×4 (08:00→23:39)
--- NOTE | 2021-05-17 08:11 | PDOC ---
[employer] PROGRESS NOTE Date of Service DOS: DATE: 05/17/21 TIME: 08:00 Chief Complaint Chief Complaint Cardiopulmonary arrest Sepsis Benzodiazepine overdose COVID-19 PUI COVID-19 pneumonia? NIYAH due to vasomotor nephropathy Hyperglycemia Plan: Patient agreed to ICU on ventilator We will initiate Decadron and empiric antibiotics. COVID-19 pending. Results positive will initiate remdesivir and monitor daily LFTs. Blood cultures pending 1 L normal saline bolus in ER. We will continue IV fluids based on ideal body weight to complete sepsis fluid bolus. Monitor kidney function for improvement after IV fluids We will provide basal insulin and obtain hemoglobin A1c FEN - NPO PPX - Lovenox FULL CODE Dispo - ICU History of Present Illness History of Present Illness Patient is a 25-year-old male with reported past medical history drug abuse, and recent COVID-19 who presents to the ED after being found unresponsive by bystanders. Upon EMS arrival CPR had been started, but when pulses were checked ROSC been obtained and CPR was ceased. Upon arrival to ED he was saturating 83% on nonrebreather with GCS 3. UDS positive for benzodiazepines, cocaine, and c annabis. Chest x-ray showed moderate diffuse pulmonary opacities, which may represent pulmonary edema or pneumonia including viral pneumonia. Labs in the ED showed creatinine 1.5, lactic acid 2.8, WBC 10.6. He required intubation in ER due to hypoxia and not protecting his airway. Initiated on propofol, Versed, and as needed fentanyl. Admit patient to ICU for further medical management. 05/17/2021: Febrile with T-max 100.7 F. D-dimer 2.06. CTA w/o PE, but extensive consolidation of the dependent lungs with groundglass elsewhere; may represent infection with Covid pneumonia, pulmonary edema, ARDS or other multifocal infection. Inflammatory markers not significantly elevated. Rapid COVID-19 negative; COVID-19 PCR negative. Continue empiric treatment with Zosyn, and D/C Decadron. Blood cultures pending. Updated patient's father on current status, lab, and imaging finding; patient's father will be by today to visit. Critical care time 30 minutes spent reviewing labs, reviewing imaging, and discussion with RN. Vitals/I&O Vitals/I&O: Vital Signs Date Time Temp Pulse Resp B/P (MAP) Pulse Ox O2 Delivery O2 Flow Rate FiO2 05/17/21 07:44 100 Ventilator 05/17/21 07:00 91 24 91/52 (65) 05/17/21 05:00 99.5 99.5 I & O 05/16/21 05/16/21 05/17/21 15:00 23:00 07:00 Intake Total 344 ml Output Total 1055 ml Balance -711 ml Physical Exam General: No acute distress, Other (Sedated) Heart: Regular rate Lungs: Other (Intubated on mechanical ventilator) Abdomen: Soft, No tenderness Extremities: No clubbing, No cyanosis Skin: No rashes, No breakdown Labs Labs: Laboratory Tests Test 05/16/21 17:41 05/16/21 18:05 05/16/21 19:32 05/16/21 21:00 White Blood Count 10.6 x10^3/uL (4.0-11.0) Red Blood Count 4.81 x10^6/uL (4.30-5.70) Hemoglobin 15.1 g/dL (13.0-17.5) Hematocrit 43.9 % (39.0-53.0) Mean Corpuscular Volume 91 fL (79-100) Mean Corpuscular Hemoglobin 31 pg (25-35) Mean Corpuscular Hemoglobin Concent 34 g/dL (31-37) Red Cell Distribution Width 13.4 % (11.5-14.5) Platelet Count 198 x10^3/uL (140-400) Neutrophils (%) (Auto) 45 % (31-73) Lymphocytes (%) (Auto) 42 % (24-48) Monocytes (%) (Auto) 9 % (0-9) Eosinophils (%) (Auto) 3 % (0-3) Basophils (%) (Auto) 1 % (0-3) Neutrophils # (Auto) 4.7 x10^3/uL (1.8-7.7) Lymphocytes # (Auto) 4.5 x10^3/uL (1.0-4.8) Monocytes # (Auto) 1.0 x10^3/uL (0.0-1.1) Eosinophils # (Auto) 0.4 x10^3/uL (0.0-0.7) Basophils # (Auto) 0.1 x10^3/uL (0.0-0.2) Sodium Level 139 mmol/L (136-145) Potassium Level 3.6 mmol/L (3.5-5.1) Chloride Level 105 mmol/L (98-107) Carbon Dioxide Level 28 mmol/L (21-32) Anion Gap 6 (6-14) Blood Urea Nitrogen 20 mg/dL (8-26) Creatinine 1.5 mg/dL (0.7-1.3) Estimated GFR (Cockcroft-Gault) 58.0 BUN/Creatinine Ratio 13 (6-20) Glucose Level 244 mg/dL (70-99) Lactic Acid Level 2.8 mmol/L (0.4-2.0) 1.7 mmol/L (0.4-2.0) Calcium Level 8.0 mg/dL (8.5-10.1) Total Bilirubin 0.3 mg/dL (0.2-1.0) Aspartate Amino Transf (AST/SGOT) 22 U/L (15-37) Alanine Aminotransferase (ALT/SGPT) 64 U/L (16-63) Alkaline Phosphatase 65 U/L (46-116) Creatine Kinase 150 U/L (39-308) Troponin I Quantitative < 0.017 ng/mL (0.000-0.055) XH-Ztb-M-Type Natriuretic Peptide 28 pg/mL (0-124) Total Protein 6.4 g/dL (6.4-8.2) Albumin 3.5 g/dL (3.4-5.0) Albumin/Globulin Ratio 1.2 (1.0-1.7) Salicylates Level < 2.8 mg/dL (2.8-20.0) Salicylate Last Dose Date Unknown Salicylate Last Dose Time Unknown Acetaminophen Level < 2 mcg/ml (10-30) Acetaminophen Last Dose Date Unknown Acetaminophen Last Dose Time Unknown Ethyl Alcohol Level < 10 mg/dL (0-10) Urine Collection Type Unknown Urine Color Yellow Urine Clarity Clear Urine pH 5.5 (<5.0-8.0) Urine Specific [place] >=1.030 (1.000-1.030) Urine Protein 30 mg/dL (NEG-TRACE) Urine Glucose (UA) 500 mg/dL (NEG) Urine Ketones (Stick) Negative mg/dL (NEG) Urine Blood Negative (NEG) Urine Nitrite Negative (NEG) Urine Bilirubin Negative (NEG) Urine Urobilinogen Dipstick 0.2 mg/dL (0.2 mg/dL) Urine Leukocyte Esterase Negative (NEG) Urine RBC 3-5 /HPF (0-2) Urine WBC 0 /HPF (0-4) Urine Transitional Epithelial Cells Few /LPF Urine Bacteria 0 /HPF (0-FEW) Urine Hyaline Casts Moderate /HPF Urine Mucus Mod /LPF Urine Opiates Screen Neg (NEG) Urine Methadone Screen Neg (NEG) Urine Barbiturates Neg (NEG) Urine Phencyclidine Screen Neg (NEG) Urine Amphetamine/Methamphetamine Neg (NEG) Urine Benzodiazepines Screen Pos (NEG) Urine Cocaine Screen Pos (NEG) Urine Cannabinoids Screen Pos (NEG) Urine Ethyl Alcohol Neg (NEG) SARS-CoV-2 Antigen (Rapid) Negative (NEGATIVE) D-Dimer (Marielle) 2.06 ug/mlFEU (0.00-0.50) Ferritin 175 ng/mL (26-388) Lactate Dehydrogenase 239 U/L (85-227) C-Reactive Protein, Quantitative 0.5 mg/L (0-3.3) Test 05/16/21 22:15 05/17/21 05:20 O2 Saturation 97 % (92-99) Arterial Blood pH 7.30 (7.35-7.45) Arterial Blood pH (Temp corrected) 7.29 Arterial Blood pCO2 at Patient Temp 42 mmHg (35-46) Arterial Blood pCO2 (Temp correct) 43 mmHg Arterial Blood pO2 at Patient Temp 90 mmHg (85-108) Arterial Blood pO2 (Temp corrected) 95 mmHg Arterial Blood HCO3 20 mmol/L (21-28) Arterial Blood Base Excess -6 mmol/L (-3-3) FiO2 100 White Blood Count 11.1 x10^3/uL (4.0-11.0) Red Blood Count 5.11 x10^6/uL (4.30-5.70) Hemoglobin 16.0 g/dL (13.0-17.5) Hematocrit 46.4 % (39.0-53.0) Mean Corpuscular Volume 91 fL (79-100) Mean Corpuscular Hemoglobin 31 pg (25-35) Mean Corpuscular Hemoglobin Concent 35 g/dL (31-37) Red Cell Distribution Width 13.3 % (11.5-14.5) Platelet Count 165 x10^3/uL (140-400) Neutrophils (%) (Auto) 87 % (31-73) Lymphocytes (%) (Auto) 4 % (24-48) Monocytes (%) (Auto) 8 % (0-9) Eosinophils (%) (Auto) 0 % (0-3) Basophils (%) (Auto) 0 % (0-3) Neutrophils # (Auto) 9.7 x10^3/uL (1.8-7.7) Lymphocytes # (Auto) 0.5 x10^3/uL (1.0-4.8) Monocytes # (Auto) 0.9 x10^3/uL (0.0-1.1) Eosinophils # (Auto) 0.0 x10^3/uL (0.0-0.7) Basophils # (Auto) 0.0 x10^3/uL (0.0-0.2) Sodium Level 139 mmol/L (136-145) Potassium Level 5.0 mmol/L (3.5-5.1) Chloride Level 106 mmol/L (98-107) Carbon Dioxide Level 26 mmol/L (21-32) Anion Gap 7 (6-14) Blood Urea Nitrogen 17 mg/dL (8-26) Creatinine 1.4 mg/dL (0.7-1.3) Estimated GFR (Cockcroft-Gault) 62.8 Glucose Level 138 mg/dL (70-99) Calcium Level 8.8 mg/dL (8.5-10.1) Assessment and Plan Assessmemt and Plan Problems Medical Problems: (1) Altered mental state Status: Acute (2) Respiratory failure Status: Acute Comment Review of Relevant I have reviewed the following items luis (where applicable) has been applied. Medications: Current Medications Medications (Trade) Dose Ordered Sig/Kris Route PRN Reason Start Time Stop Time Status Last Admin Dose Admin Fentanyl Citrate (Fentanyl 2ml Vial) 100 mcg 1X ONCE IVP 05/16/21 18:00 05/16/21 18:01 DC 05/16/21 17:45 Sodium Chloride 1,000 ml @ 1,000 mls/hr 1X ONCE IV 05/16/21 18:00 05/16/21 18:59 DC 05/16/21 17:40 Midazolam HCl 100 ml @ 1 mls/hr 1X ONCE IV 05/16/21 18:00 05/20/21 21:59 05/16/21 18:19 Calcium Gluconate (Calcium Gluconate) 2,000 mg 1X ONCE IVP 05/16/21 18:15 05/16/21 18:16 DC 05/16/21 18:12 Ondansetron HCl (Zofran) 4 mg 1X ONCE IVP 05/16/21 18:15 05/16/21 18:16 DC 05/16/21 21:36 Etomidate (Amidate) 30 mg 1X ONCE IV 05/16/21 18:30 05/16/21 18:31 DC 05/16/21 17:41 Succinylcholine Chloride (Anectine) 100 mg 1X ONCE IV 05/16/21 18:30 05/16/21 18:31 DC 05/16/21 17:41 Propofol 100 ml @ 3.027 mls/ hr CONT PRN IV PER PROTOCOL 05/16/21 19:15 05/17/21 06:30 Piperacillin Sod/ Tazobactam Sod 4.5 gm/Sodium Chloride 100 ml @ 200 mls/hr Q6HRS IV 05/16/21 18:30 05/17/21 06:19 Insulin Glargine (Lantus Syringe) 10 unit QHS SQ 05/16/21 21:00 05/16/21 21:36 Dexamethasone Sodium Phosphate (Decadron) 6 mg 1X ONCE IVP 05/16/21 19:30 05/16/21 19:33 DC 05/16/21 21:34 Famotidine (Pepcid Vial) 20 mg BID IVP 05/16/21 21:00 05/16/21 21:34 Enoxaparin Sodium (Lovenox 40mg Syringe) 40 mg Q24H SQ 05/16/21 21:00 05/16/21 21:32 Iohexol (Omnipaque 350 Mg/ml) 95 ml 1X ONCE IV 05/16/21 20:15 05/16/21 20:16 DC 05/16/21 20:30 Midazolam HCl 100 ml @ 1 mls/hr CONT PRN IV SEE PROTOCOL 05/16/21 23:45 05/17/21 02:17 Justifications for Admission General Conditions Other justification for admit: Cardiopulmonary arrest, benzodiazepine overdose, COVID-19 PUI Other Justification MATIAS ARAMBULA MD May 17, 2021 08:11
[2021-05-17 08:39] LABS: BASE EXCESS ABG -5 mmol/L (-3-3); HCO3 ABG 21 mmol/L (21-28); PCO2 ABG 40 mmHg (35-46); PO2 ABG 128 mmHg (85-108); SAT O2 ABG 98 % (92-99)
--- NOTE | 2021-05-17 08:42 | RAD ---
XR CHEST 1V History: Reason: sedated on Vent / Spl. Instructions: / History: Comparison: May 16, 2021 Findings: Increased moderate diffuse pulmonary opacities. No pleural effusion. No pneumothorax. Unchanged size. Stable endotracheal tube and enteric tube. Impression: 1. Increased moderate diffuse pulmonary opacities. Electronically signed by: Christian Campa DO (05/17/2021 8:40 AM) [facility] [place]
[2021-05-17] MEDS ORDERED: DEXAMETHASONE SOD PHOS 4 MG/ML VIAL IVP SCH (09:00)
[2021-05-17 09:07] LABS: FIO2 ABG 90/VENT
[2021-05-17] MEDS: FAMOTIDINE 20 MG/2 ML VIAL IVP SCH ×2 (09:24→20:15)
[2021-05-17 10:15] LABS: % ATYL 1 % (0-0); % BANDS 22 % (0-9); % LYMPHS 11 % (24-48); % METAS 1 % (0-0); % MONOS 4 % (0-10); % SEGS 61 % (35-66)
[2021-05-17 10:17] LABS: PLT ESTIMATE ADEQUATE (ADEQUATE)
--- NOTE | 2021-05-17 10:24 | CONS ---
DATE OF CONSULTATION: 05/17/2021 REASON FOR CONSULTATION: I was asked to see this 25-year-old gentleman for acute respiratory failure. HISTORY OF PRESENT ILLNESS: The patient is currently on the ventilator and is sedated on propofol and Versed. He is not able to give me any information. All of the information was obtained from chart and nursing staff. Apparently, he was found down. CPR was started by a bystander, but when paramedics arrived, he did have pulse. He was brought to Emergency Room with GCS of 3. He was intubated. He is currently on the ventilator and is intubated. RN and ICU nurse states that when the patient arrived, he had vomited all over him. He probably aspirated. He does have frothy secretion. He is on assist control, FiO2 of 100%, PEEP of 10. His O2 saturation is 100%. He has a history of recent COVID infection. His rapid COVID is negative, ALLERGIES: No known drug allergies. MEDICATIONS: Currently, he is on dexamethasone, insulin, Lovenox 40 mg subQ daily, Pepcid 40 b.i.d., Zosyn, propofol and Versed. SOCIAL HISTORY: Positive for smoking and drug abuse. FAMILY HISTORY: Hypertension per chart. REVIEW OF SYSTEMS: As mentioned as above, other systems otherwise negative. PHYSICAL EXAMINATION: GENERAL: Well-developed gentleman. He is on the ventilator and sedated. No distress. VITAL SIGNS: His O2 saturation is 100%, respiratory rate of 24, heart rate 91, blood pressure 109/59, temperature 99.5. HEENT: Normocephalic, atraumatic before. CARDIOVASCULAR: Regular rate and rhythm. CHEST: Inspection is normal. There is no accessory muscle use. ABDOMEN: There is no paradoxical abdominal motion. EXTREMITIES: There is no edema. NEUROLOGIC: Sedated on the ventilator. SKIN: No rashes. LABORATORY DATA: I reviewed the following lab data: Chest x-ray shows bilateral infiltrate, ET tube is in good position. Sodium 139, potassium 5, chloride 106, CO2 of 26, BUN 17, creatinine 1.4. Troponin less than 0.01. Lactic acid 1.7. BNP 28. ABG this morning, pH 7.34, pCO2 of 40, pO2 of 128 on FIO2 90%. WBC 11.1, hemoglobin 16, platelets 165. Urine drug screen was positive for benzo, cocaine and marijuana. His acetaminophen and salicylate were normal. Alcohol was less than 10. IMPRESSION: 1. Acute respiratory failure secondary to aspiration pneumonia, cannot rule out acute respiratory distress syndrome, encephalopathy with urine drug screen positive for marijuana, benzodiazepine and cocaine. 2. Abnormal chest x-ray, aspiration pneumonia, rule out acute respiratory distress syndrome. 3. Aspiration pneumonia. 4. Drug abuse ?overdose. 5. Acute kidney injury. 6. Recent COVID infection. Details are not known. 7. Smoker. PLAN AND RECOMMENDATION: 1. Titrate FiO2 to keep O2 saturation 94%, when FiO2 is 50% try to titrate down PEEP. 2. Agree with dexamethasone. 3. Lovenox for DVT prophylaxis. 4. Continue Zosyn. 5. Send sputum for Gram stain and culture. 6. Start Pepcid for stress ulcer prophylaxis. 7. Elevate head of bed. 8. The findings and recommendations were discussed with RN and RT. Thank you very much for allowing me to participate in care of this very nice gentleman. JUAN DR: Nolan TID: [id number]
[2021-05-17] MEDS: IV NORMAL SALINE 1000ML BAG 1,000 ML IV SCH ×2 (10:42→23:34)
[2021-05-17] MEDS: ENOXAPARIN 40 MG/0.4 ML SYRINGE. SQ SCH (20:15)
[2021-05-17] MEDS: INSULIN GLARGINE SYRINGE. SQ SCH (20:15)
[2021-05-18] VITALS (24 sets, daily range): BP systolic 103–178; BP diastolic 47–107
[2021-05-18] MEDS: PROPOFOL 100 ML IV PRN ×3 (02:20→08:43)
[2021-05-18 05:07] LABS: BASO % 0 % (0-3); EOS % 0 % (0-3); HEMATOCRIT 38.6 % (39.0-53.0); HEMOGLOBIN 13.4 g/dL (13.0-17.5); LYMPH % 10 % (24-48); MEAN CORPUSCULAR HEMOGLOBIN 32 pg (25-35); MEAN CORPUSCULAR HGB CONC 35 g/dL (31-37); MEAN CORPUSCULAR VOLUME 91 fL (79-100); MONO # 0.7 x10^3/uL (0.0-1.1); MONO % 7 % (0-9); NEUT # 8.3 x10^3/uL (1.8-7.7); NEUT % 83 % (31-73); PLATELET COUNT 145 x10^3/uL (140-400); RED BLOOD COUNT 4.25 x10^6/uL (4.30-5.70); RED CELL DISTRIBUTION WIDTH 13.3 % (11.5-14.5); WHITE BLOOD COUNT 10.1 x10^3/uL (4.0-11.0)
[2021-05-18] MEDS: PIPERACILLIN/TAZOBACTAM 4.5 GM in IV NORMAL SALINE 100ML 100 ML IV SCH ×3 (05:18→18:02)
[2021-05-18 05:38] LABS: CALCIUM 8.4 mg/dL (8.5-10.1); GFR 92.6; POTASSIUM 3.8 mmol/L (3.5-5.1)
[2021-05-18] MEDS: INSULIN LISPRO 300 UNITS/3 ML VIAL. SQ SCH ×3 (05:41→18:02)
[2021-05-18] MEDS: MIDAZOLAM 100mg/100ml NS BAG 100 ML IV PRN (07:09)
--- NOTE | 2021-05-18 07:26 | PDOC ---
PULMONARY PROGRESS NOTES DATE: 05/18/21 TIME: 07:26 Subjective Patient sedated on assist control ventilation Vitals Vital Signs Date Time Temp Pulse Resp B/P (MAP) Pulse Ox O2 Delivery O2 Flow Rate FiO2 05/18/21 06:00 68 24 105/57 (73) 100 Ventilator 05/18/21 04:00 98.3 98.3 Lungs: Crackles Cardiovascular: S1, S2 Abdomen: Soft Extremities: No Edema Skin: Warm, No Rashes Labs Laboratory Tests Test 05/16/21 17:41 05/16/21 18:05 05/16/21 19:32 05/16/21 21:00 White Blood Count 10.6 x10^3/uL (4.0-11.0) Red Blood Count 4.81 x10^6/uL (4.30-5.70) Hemoglobin 15.1 g/dL (13.0-17.5) Hematocrit 43.9 % (39.0-53.0) Mean Corpuscular Volume 91 fL (79-100) Mean Corpuscular Hemoglobin 31 pg (25-35) Mean Corpuscular Hemoglobin Concent 34 g/dL (31-37) Red Cell Distribution Width 13.4 % (11.5-14.5) Platelet Count 198 x10^3/uL (140-400) Neutrophils (%) (Auto) 45 % (31-73) Lymphocytes (%) (Auto) 42 % (24-48) Monocytes (%) (Auto) 9 % (0-9) Eosinophils (%) (Auto) 3 % (0-3) Basophils (%) (Auto) 1 % (0-3) Neutrophils # (Auto) 4.7 x10^3/uL (1.8-7.7) Lymphocytes # (Auto) 4.5 x10^3/uL (1.0-4.8) Monocytes # (Auto) 1.0 x10^3/uL (0.0-1.1) Eosinophils # (Auto) 0.4 x10^3/uL (0.0-0.7) Basophils # (Auto) 0.1 x10^3/uL (0.0-0.2) Sodium Level 139 mmol/L (136-145) Potassium Level 3.6 mmol/L (3.5-5.1) Chloride Level 105 mmol/L (98-107) Carbon Dioxide Level 28 mmol/L (21-32) Anion Gap 6 (6-14) Blood Urea Nitrogen 20 mg/dL (8-26) Creatinine 1.5 mg/dL (0.7-1.3) Estimated GFR (Cockcroft-Gault) 58.0 BUN/Creatinine Ratio 13 (6-20) Glucose Level 244 mg/dL (70-99) Hemoglobin A1c 5.0 % (4.8-5.6) Lactic Acid Level 2.8 mmol/L (0.4-2.0) 1.7 mmol/L (0.4-2.0) Calcium Level 8.0 mg/dL (8.5-10.1) Total Bilirubin 0.3 mg/dL (0.2-1.0) Aspartate Amino Transf (AST/SGOT) 22 U/L (15-37) Alanine Aminotransferase (ALT/SGPT) 64 U/L (16-63) Alkaline Phosphatase 65 U/L (46-116) Creatine Kinase 150 U/L (39-308) Troponin I Quantitative < 0.017 ng/mL (0.000-0.055) LV-Jxl-D-Type Natriuretic Peptide 28 pg/mL (0-124) Total Protein 6.4 g/dL (6.4-8.2) Albumin 3.5 g/dL (3.4-5.0) Albumin/Globulin Ratio 1.2 (1.0-1.7) Salicylates Level < 2.8 mg/dL (2.8-20.0) Salicylate Last Dose Date Unknown Salicylate Last Dose Time Unknown Acetaminophen Level < 2 mcg/ml (10-30) Acetaminophen Last Dose Date Unknown Acetaminophen Last Dose Time Unknown Ethyl Alcohol Level < 10 mg/dL (0-10) Urine Collection Type Unknown Urine Color Yellow Urine Clarity Clear Urine pH 5.5 (<5.0-8.0) Urine Specific [place] >=1.030 (1.000-1.030) Urine Protein 30 mg/dL (NEG-TRACE) Urine Glucose (UA) 500 mg/dL (NEG) Urine Ketones (Stick) Negative mg/dL (NEG) Urine Blood Negative (NEG) Urine Nitrite Negative (NEG) Urine Bilirubin Negative (NEG) Urine Urobilinogen Dipstick 0.2 mg/dL (0.2 mg/dL) Urine Leukocyte Esterase Negative (NEG) Urine RBC 3-5 /HPF (0-2) Urine WBC 0 /HPF (0-4) Urine Transitional Epithelial Cells Few /LPF Urine Bacteria 0 /HPF (0-FEW) Urine Hyaline Casts Moderate /HPF Urine Mucus Mod /LPF Urine Opiates Screen Neg (NEG) Urine Methadone Screen Neg (NEG) Urine Barbiturates Neg (NEG) Urine Phencyclidine Screen Neg (NEG) Urine Amphetamine/Methamphetamine Neg (NEG) Urine Benzodiazepines Screen Pos (NEG) Urine Cocaine Screen Pos (NEG) Urine Cannabinoids Screen Pos (NEG) Urine Ethyl Alcohol Neg (NEG) SARS-CoV-2 RNA (MARGY) Negative (Negative) SARS-CoV-2 Antigen (Rapid) Negative (NEGATIVE) D-Dimer (Marielle) 2.06 ug/mlFEU (0.00-0.50) Ferritin 175 ng/mL (26-388) Lactate Dehydrogenase 239 U/L (85-227) C-Reactive Protein, Quantitative 0.5 mg/L (0-3.3) Test 05/16/21 22:15 05/17/21 05:20 05/17/21 08:00 05/17/21 12:50 O2 Saturation 97 % (92-99) 98 % (92-99) Arterial Blood pH 7.30 (7.35-7.45) 7.34 (7.35-7.45) Arterial Blood pH (Temp corrected) 7.29 Arterial Blood pCO2 at Patient Temp 42 mmHg (35-46) 40 mmHg (35-46) Arterial Blood pCO2 (Temp correct) 43 mmHg Arterial Blood pO2 at Patient Temp 90 mmHg (85-108) 128 mmHg (85-108) Arterial Blood pO2 (Temp corrected) 95 mmHg Arterial Blood HCO3 20 mmol/L (21-28) 21 mmol/L (21-28) Arterial Blood Base Excess -6 mmol/L (-3-3) -5 mmol/L (-3-3) FiO2 100 90/vent White Blood Count 11.1 x10^3/uL (4.0-11.0) Red Blood Count 5.11 x10^6/uL (4.30-5.70) Hemoglobin 16.0 g/dL (13.0-17.5) Hematocrit 46.4 % (39.0-53.0) Mean Corpuscular Volume 91 fL (79-100) Mean Corpuscular Hemoglobin 31 pg (25-35) Mean Corpuscular Hemoglobin Concent 35 g/dL (31-37) Red Cell Distribution Width 13.3 % (11.5-14.5) Platelet Count 165 x10^3/uL (140-400) Neutrophils (%) (Auto) 87 % (31-73) Lymphocytes (%) (Auto) 4 % (24-48) Monocytes (%) (Auto) 8 % (0-9) Eosinophils (%) (Auto) 0 % (0-3) Basophils (%) (Auto) 0 % (0-3) Neutrophils # (Auto) 9.7 x10^3/uL (1.8-7.7) Lymphocytes # (Auto) 0.5 x10^3/uL (1.0-4.8) Monocytes # (Auto) 0.9 x10^3/uL (0.0-1.1) Eosinophils # (Auto) 0.0 x10^3/uL (0.0-0.7) Basophils # (Auto) 0.0 x10^3/uL (0.0-0.2) Segmented Neutrophils % 61 % (35-66) Band Neutrophils % 22 % (0-9) Lymphocytes % 11 % (24-48) Atypical Lymphocytes % (Manual) 1 % (0-0) Monocytes % 4 % (0-10) Metamyelocytes % 1 % (0-0) Platelet Estimate Adequate (ADEQUATE) Sodium Level 139 mmol/L (136-145) Potassium Level 5.0 mmol/L (3.5-5.1) Chloride Level 106 mmol/L (98-107) Carbon Dioxide Level 26 mmol/L (21-32) Anion Gap 7 (6-14) Blood Urea Nitrogen 17 mg/dL (8-26) Creatinine 1.4 mg/dL (0.7-1.3) Estimated GFR (Cockcroft-Gault) 62.8 Glucose Level 138 mg/dL (70-99) Calcium Level 8.8 mg/dL (8.5-10.1) Glucose (Fingerstick) 134 mg/dL (70-99) Test 05/17/21 16:50 05/17/21 23:38 05/18/21 04:30 Glucose (Fingerstick) 150 mg/dL (70-99) 121 mg/dL (70-99) White Blood Count 10.1 x10^3/uL (4.0-11.0) Red Blood Count 4.25 x10^6/uL (4.30-5.70) Hemoglobin 13.4 g/dL (13.0-17.5) Hematocrit 38.6 % (39.0-53.0) Mean Corpuscular Volume 91 fL (79-100) Mean Corpuscular Hemoglobin 32 pg (25-35) Mean Corpuscular Hemoglobin Concent 35 g/dL (31-37) Red Cell Distribution Width 13.3 % (11.5-14.5) Platelet Count 145 x10^3/uL (140-400) Neutrophils (%) (Auto) 83 % (31-73) Lymphocytes (%) (Auto) 10 % (24-48) Monocytes (%) (Auto) 7 % (0-9) Eosinophils (%) (Auto) 0 % (0-3) Basophils (%) (Auto) 0 % (0-3) Neutrophils # (Auto) 8.3 x10^3/uL (1.8-7.7) Lymphocytes # (Auto) 1.0 x10^3/uL (1.0-4.8) Monocytes # (Auto) 0.7 x10^3/uL (0.0-1.1) Eosinophils # (Auto) 0.0 x10^3/uL (0.0-0.7) Basophils # (Auto) 0.0 x10^3/uL (0.0-0.2) Sodium Level 140 mmol/L (136-145) Potassium Level 3.8 mmol/L (3.5-5.1) Chloride Level 108 mmol/L (98-107) Carbon Dioxide Level 26 mmol/L (21-32) Anion Gap 6 (6-14) Blood Urea Nitrogen 16 mg/dL (8-26) Creatinine 1.0 mg/dL (0.7-1.3) Estimated GFR (Cockcroft-Gault) 92.6 Glucose Level 124 mg/dL (70-99) Calcium Level 8.4 mg/dL (8.5-10.1) Magnesium Level 2.2 mg/dL (1.8-2.4) Laboratory Tests Test 05/17/21 08:00 05/17/21 12:50 05/17/21 16:50 05/17/21 23:38 O2 Saturation 98 % (92-99) Arterial Blood pH 7.34 (7.35-7.45) Arterial Blood pCO2 at Patient Temp 40 mmHg (35-46) Arterial Blood pO2 at Patient Temp 128 mmHg (85-108) Arterial Blood HCO3 21 mmol/L (21-28) Arterial Blood Base Excess -5 mmol/L (-3-3) FiO2 90/vent Glucose (Fingerstick) 134 mg/dL (70-99) 150 mg/dL (70-99) 121 mg/dL (70-99) Test 05/18/21 04:30 White Blood Count 10.1 x10^3/uL (4.0-11.0) Red Blood Count 4.25 x10^6/uL (4.30-5.70) Hemoglobin 13.4 g/dL (13.0-17.5) Hematocrit 38.6 % (39.0-53.0) Mean Corpuscular Volume 91 fL (79-100) Mean Corpuscular Hemoglobin 32 pg (25-35) Mean Corpuscular Hemoglobin Concent 35 g/dL (31-37) Red Cell Distribution Width 13.3 % (11.5-14.5) Platelet Count 145 x10^3/uL (140-400) Neutrophils (%) (Auto) 83 % (31-73) Lymphocytes (%) (Auto) 10 % (24-48) Monocytes (%) (Auto) 7 % (0-9) Eosinophils (%) (Auto) 0 % (0-3) Basophils (%) (Auto) 0 % (0-3) Neutrophils # (Auto) 8.3 x10^3/uL (1.8-7.7) Lymphocytes # (Auto) 1.0 x10^3/uL (1.0-4.8) Monocytes # (Auto) 0.7 x10^3/uL (0.0-1.1) Eosinophils # (Auto) 0.0 x10^3/uL (0.0-0.7) Basophils # (Auto) 0.0 x10^3/uL (0.0-0.2) Sodium Level 140 mmol/L (136-145) Potassium Level 3.8 mmol/L (3.5-5.1) Chloride Level 108 mmol/L (98-107) Carbon Dioxide Level 26 mmol/L (21-32) Anion Gap 6 (6-14) Blood Urea Nitrogen 16 mg/dL (8-26) Creatinine 1.0 mg/dL (0.7-1.3) Estimated GFR (Cockcroft-Gault) 92.6 Glucose Level 124 mg/dL (70-99) Calcium Level 8.4 mg/dL (8.5-10.1) Magnesium Level 2.2 mg/dL (1.8-2.4) Medications Active Scripts Medications Dose Route/Sig Max Daily Dose Days Date Category Zofran (Ondansetron Hcl) 4 Mg Tablet 1 Tab PO PRN Q6-8HRS 12/21/20 Rx Hydrocodone-Apap 5-325 (Hydrocodone Bit/Acetaminophen) 1 Each Tablet 1 Tab PO PRN Q6HRS 03/19/14 Reported Bactrim 400-80 Mg Tablet (Sulfamethoxazole/Trimethoprim) 1 Each Tablet 2 Each PO BID 03/19/14 Reported Keflex (Cephalexin) 500 Mg Capsule 500 Mg PO QID 03/19/14 Reported Impression . IMPRESSION: 1. Acute respiratory failure secondary to aspiration pneumonia 2. Abnormal chest x-ray, aspiration pneumonia/acute respiratory distress syndrome. 3. Aspiration pneumonia. 4. Drug abuse 5. Acute kidney injury. 6. Recent COVID infection. 7. Smoker. Plan . Updated 05/18 No significant overnight events Patient on low FiO2 Discussed with RT and RN will discontinue sedation and possibly extubate Hemodynamically stable Discussed with father at the bedside Suspect chest x-ray related to acute lung injury from possible aspiration PLAN AND RECOMMENDATION: 1. Titrate FiO2 to keep O2 saturation 94%, when FiO2 is 50% try to titrate down PEEP. 2. Agree with dexamethasone. 3. Lovenox for DVT prophylaxis. 4. Continue Zosyn. 5. Send sputum for Gram stain and culture. 6. Start Pepcid for stress ulcer prophylaxis. 7. Elevate head of bed. 8. The findings and recommendations were discussed with RN and RT. Thank you very much for allowing me to participate in care of this very nice gentleman. BRYAN PARR MD May 18, 2021 07:26
--- NOTE | 2021-05-18 08:02 | RAD ---
XR CHEST 1V History: Ventilator Comparison: 05/17/2021 Technique: Portable AP chest radiograph. Findings: Tubes and lines: Endotracheal tube tip projects 4 cm above the marco antonio. Gastric tube coils within the stomach. Lungs and pleura: Diffuse bilateral airspace opacities similar to comparison. No pleural effusion or pneumothorax. Cardiac silhouette and pulmonary vasculature: Stable. Osseous structures and other: Unremarkable. Impression: 1. Unchanged diffuse bilateral airspace disease. Electronically signed by: Mingo Jo MD (05/18/2021 7:59 AM) [id number]
[2021-05-18] MEDS: FAMOTIDINE 20 MG/2 ML VIAL IVP SCH ×2 (08:42→21:15)
[2021-05-18 09:55] LABS: BASE EXCESS ABG -1 mmol/L (-3-3); HCO3 ABG 22 mmol/L (21-28); PCO2 ABG 30 mmHg (35-46); PO2 ABG 139 mmHg (85-108); SAT O2 ABG 99 % (92-99)
[2021-05-18 09:58] LABS: FIO2 ABG 40
[2021-05-18] MEDS: IV NORMAL SALINE 1000ML BAG 1,000 ML IV SCH ×2 (10:52→21:15)
--- NOTE | 2021-05-18 11:43 | PDOC ---
[facility] PROGRESS NOTE Date of Service DOS: DATE: 05/18/21 TIME: 11:39 Chief Complaint Chief Complaint Cardiopulmonary arrest Sepsis Benzodiazepine overdose COVID-19 PUI COVID-19 pneumonia? NIYAH due to vasomotor nephropathy Hyperglycemia Plan: Patient agreed to ICU on ventilator COVID-19 negative Blood cultures pending 1 L normal saline bolus in ER. We will continue IV fluids based on ideal body weight to complete sepsis fluid bolus. Monitor kidney function for improvement after IV fluids We will provide basal insulin and obtain hemoglobin A1c FEN - NPO PPX - Lovenox FULL CODE Dispo - ICU History of Present Illness History of Present Illness Patient is a 25-year-old male with reported past medical history drug abuse, and recent COVID-19 who presents to the ED after being found unresponsive by bystanders. Upon EMS arrival CPR had been started, but when pulses were checked ROSC been obtained and CPR was ceased. Upon arrival to ED he was saturating 83% on nonrebreather with GCS 3. UDS positive for benzodiazepines, cocaine, and cannabis. Chest x-ray showed moderate diffuse pulmonary opacities, which may represent pulmonary edema or pneumonia including viral pneumonia. Labs in the ED showed creatinine 1.5, lactic acid 2.8, WBC 10.6. He required intubation in ER due to hypoxia and not protecting his airway. Initiated on propofol, Versed, and as needed fentanyl. Admit patient to ICU for further medical management. 05/17/2021: Febrile with T-max 100.7 F. D-dimer 2.06. CTA w/o PE, but extensive consolidation of the dependent lungs with groundglass elsewhere; may represent infection with Covid pneumonia, pulmonary edema, ARDS or other multifocal infection. Inflammatory markers not significantly elevated. Rapid COVID-19 negative; COVID-19 PCR negative. Continue empiric treatment with Zosyn, and D/C Decadron. Blood cultures pending. Updated patient's father on current status, lab, and imaging finding; patient's father will be by today to visit. Critical care time 30 minutes spent reviewing labs, reviewing imaging, and discussion with RN. 05/18 No major events overnight. He remained intubated and sedated. Evaluated at bedside this morning with parents at bedside. Informed him we may proceed with attempting extubation today but that will be deferred to the pulmonary team. Covid is negative. Will benefit from PAT consult after extubation. Continue antibiotics for aspiration pneumonia. Vitals/I&O Vitals/I&O: Vital Signs Date Time Temp Pulse Resp B/P (MAP) Pulse Ox O2 Delivery O2 Flow Rate FiO2 05/18/21 11:17 24 99 Ventilator 05/18/21 06:00 68 105/57 (73) 05/18/21 04:00 98.3 98.3 I & O 05/17/21 05/17/21 05/18/21 15:00 23:00 07:00 Intake Total 280 ml 2366.7 ml 2024 ml Output Total 310 ml 1165 ml 1100 ml Balance -30 ml 1201.7 ml 924 ml Physical Exam General: No acute distress, Other (Sedated) Heart: Regular rate Lungs: Other (Intubated on mechanical ventilator) Abdomen: Soft, No tenderness Extremities: No edema, Normal pulses Skin: No significant lesion Labs Labs: Laboratory Tests Test 05/17/21 12:50 05/17/21 16:50 05/17/21 23:38 05/18/21 04:30 Glucose (Fingerstick) 134 mg/dL (70-99) 150 mg/dL (70-99) 121 mg/dL (70-99) White Blood Count 10.1 x10^3/uL (4.0-11.0) Red Blood Count 4.25 x10^6/uL (4.30-5.70) Hemoglobin 13.4 g/dL (13.0-17.5) Hematocrit 38.6 % (39.0-53.0) Mean Corpuscular Volume 91 fL (79-100) Mean Corpuscular Hemoglobin 32 pg (25-35) Mean Corpuscular Hemoglobin Concent 35 g/dL (31-37) Red Cell Distribution Width 13.3 % (11.5-14.5) Platelet Count 145 x10^3/uL (140-400) Neutrophils (%) (Auto) 83 % (31-73) Lymphocytes (%) (Auto) 10 % (24-48) Monocytes (%) (Auto) 7 % (0-9) Eosinophils (%) (Auto) 0 % (0-3) Basophils (%) (Auto) 0 % (0-3) Neutrophils # (Auto) 8.3 x10^3/uL (1.8-7.7) Lymphocytes # (Auto) 1.0 x10^3/uL (1.0-4.8) Monocytes # (Auto) 0.7 x10^3/uL (0.0-1.1) Eosinophils # (Auto) 0.0 x10^3/uL (0.0-0.7) Basophils # (Auto) 0.0 x10^3/uL (0.0-0.2) Sodium Level 140 mmol/L (136-145) Potassium Level 3.8 mmol/L (3.5-5.1) Chloride Level 108 mmol/L (98-107) Carbon Dioxide Level 26 mmol/L (21-32) Anion Gap 6 (6-14) Blood Urea Nitrogen 16 mg/dL (8-26) Creatinine 1.0 mg/dL (0.7-1.3) Estimated GFR (Cockcroft-Gault) 92.6 Glucose Level 124 mg/dL (70-99) Calcium Level 8.4 mg/dL (8.5-10.1) Magnesium Level 2.2 mg/dL (1.8-2.4) Test 05/18/21 09:00 05/18/21 11:19 O2 Saturation 99 % (92-99) Arterial Blood pH 7.48 (7.35-7.45) Arterial Blood pCO2 at Patient Temp 30 mmHg (35-46) Arterial Blood pO2 at Patient Temp 139 mmHg (85-108) Arterial Blood HCO3 22 mmol/L (21-28) Arterial Blood Base Excess -1 mmol/L (-3-3) FiO2 40 Glucose (Fingerstick) 107 mg/dL (70-99) Assessment and Plan Assessmemt and Plan Problems Medical Problems: (1) Altered mental state Status: Acute (2) Respiratory failure Status: Acute Comment Review of Relevant I have reviewed the following items luis (where applicable) has been applied. Justifications for Admission General Conditions Other justification for admit: Cardiopulmonary arrest, benzodiazepine overdose, COVID-19 PUI Other Justification MEGAN GALLO MD May 18, 2021 11:43
[2021-05-18] MEDS ORDERED: PHENOL ORAL SPRAY 177ML BOTTLE. PO PRN (14:30)
--- NOTE | 2021-05-18 16:33 | NUR ---
SS following for discharge planning. SS reviewed pt chart and discussed with pt RN. Pt is from home. Pt positive for Benzo's, Cocaine, and THC. Pt was intubated on admission but was extubated today and is currently on three liters nasal canula. Pt on IV Zosyn. PAT team referral made for assessment and recommendations. SS will continue to follow for discharge planning.
[2021-05-18] MEDS: INSULIN GLARGINE SYRINGE. SQ SCH (21:00)
[2021-05-18] MEDS: ENOXAPARIN 40 MG/0.4 ML SYRINGE. SQ SCH (21:16)
[2021-05-18] MEDS: HYDROcodone/APAP 5/325MG 1 TAB TABLET PO PRN (21:17)
[2021-05-19] VITALS (11 sets, daily range): BP systolic 136–183; BP diastolic 71–107
[2021-05-19] MEDS: PIPERACILLIN/TAZOBACTAM 4.5 GM in IV NORMAL SALINE 100ML 100 ML IV SCH ×2 (00:53→06:53)
[2021-05-19 05:49] LABS: BASO % 0 % (0-3); CALCIUM 8.3 mg/dL (8.5-10.1); EOS # 0.1 x10^3/uL (0.0-0.7); EOS % 1 % (0-3); GFR 92.6; HEMATOCRIT 40.3 % (39.0-53.0); HEMOGLOBIN 13.9 g/dL (13.0-17.5); LYMPH # 1.7 x10^3/uL (1.0-4.8); LYMPH % 18 % (24-48); MEAN CORPUSCULAR HEMOGLOBIN 32 pg (25-35); MEAN CORPUSCULAR HGB CONC 34 g/dL (31-37); MEAN CORPUSCULAR VOLUME 92 fL (79-100); MONO # 0.6 x10^3/uL (0.0-1.1); MONO % 6 % (0-9); NEUT # 7.4 x10^3/uL (1.8-7.7); NEUT % 75 % (31-73); PLATELET COUNT 157 x10^3/uL (140-400); POTASSIUM 3.6 mmol/L (3.5-5.1); RED CELL DISTRIBUTION WIDTH 13.2 % (11.5-14.5); WHITE BLOOD COUNT 9.8 x10^3/uL (4.0-11.0)
[2021-05-19] MEDS: INSULIN LISPRO 300 UNITS/3 ML VIAL. SQ SCH ×2 (06:00)
[2021-05-19] MEDS: FAMOTIDINE 20 MG/2 ML VIAL IVP SCH ×2 (08:54→21:42)
--- NOTE | 2021-05-19 08:57 | PDOC ---
PULMONARY PROGRESS NOTES DATE: 05/19/21 TIME: 08:57 Subjective Patient awake alert sitting up in the chair not short of air Vitals Vital Signs Date Time Temp Pulse Resp B/P (MAP) Pulse Ox O2 Delivery O2 Flow Rate FiO2 05/19/21 07:21 88 24 166/107 (126) 93 Nasal Cannula 3.0 05/18/21 19:00 99.3 99.3 ROS: No Nausea, No Chest Pain, No Abdominal Pain, No Increase Cough Lungs: Crackles Cardiovascular: S1, S2 Abdomen: Soft Extremities: No Edema Skin: Warm, No Rashes Labs Laboratory Tests Test 05/17/21 12:50 05/17/21 16:50 05/17/21 23:38 05/18/21 04:30 Glucose (Fingerstick) 134 mg/dL (70-99) 150 mg/dL (70-99) 121 mg/dL (70-99) White Blood Count 10.1 x10^3/uL (4.0-11.0) Red Blood Count 4.25 x10^6/uL (4.30-5.70) Hemoglobin 13.4 g/dL (13.0-17.5) Hematocrit 38.6 % (39.0-53.0) Mean Corpuscular Volume 91 fL (79-100) Mean Corpuscular Hemoglobin 32 pg (25-35) Mean Corpuscular Hemoglobin Concent 35 g/dL (31-37) Red Cell Distribution Width 13.3 % (11.5-14.5) Platelet Count 145 x10^3/uL (140-400) Neutrophils (%) (Auto) 83 % (31-73) Lymphocytes (%) (Auto) 10 % (24-48) Monocytes (%) (Auto) 7 % (0-9) Eosinophils (%) (Auto) 0 % (0-3) Basophils (%) (Auto) 0 % (0-3) Neutrophils # (Auto) 8.3 x10^3/uL (1.8-7.7) Lymphocytes # (Auto) 1.0 x10^3/uL (1.0-4.8) Monocytes # (Auto) 0.7 x10^3/uL (0.0-1.1) Eosinophils # (Auto) 0.0 x10^3/uL (0.0-0.7) Basophils # (Auto) 0.0 x10^3/uL (0.0-0.2) Sodium Level 140 mmol/L (136-145) Potassium Level 3.8 mmol/L (3.5-5.1) Chloride Level 108 mmol/L (98-107) Carbon Dioxide Level 26 mmol/L (21-32) Anion Gap 6 (6-14) Blood Urea Nitrogen 16 mg/dL (8-26) Creatinine 1.0 mg/dL (0.7-1.3) Estimated GFR (Cockcroft-Gault) 92.6 Glucose Level 124 mg/dL (70-99) Calcium Level 8.4 mg/dL (8.5-10.1) Magnesium Level 2.2 mg/dL (1.8-2.4) Test 05/18/21 09:00 05/18/21 11:19 05/19/21 04:10 O2 Saturation 99 % (92-99) Arterial Blood pH 7.48 (7.35-7.45) Arterial Blood pCO2 at Patient Temp 30 mmHg (35-46) Arterial Blood pO2 at Patient Temp 139 mmHg (85-108) Arterial Blood HCO3 22 mmol/L (21-28) Arterial Blood Base Excess -1 mmol/L (-3-3) FiO2 40 Glucose (Fingerstick) 107 mg/dL (70-99) White Blood Count 9.8 x10^3/uL (4.0-11.0) Red Blood Count 4.40 x10^6/uL (4.30-5.70) Hemoglobin 13.9 g/dL (13.0-17.5) Hematocrit 40.3 % (39.0-53.0) Mean Corpuscular Volume 92 fL (79-100) Mean Corpuscular Hemoglobin 32 pg (25-35) Mean Corpuscular Hemoglobin Concent 34 g/dL (31-37) Red Cell Distribution Width 13.2 % (11.5-14.5) Platelet Count 157 x10^3/uL (140-400) Neutrophils (%) (Auto) 75 % (31-73) Lymphocytes (%) (Auto) 18 % (24-48) Monocytes (%) (Auto) 6 % (0-9) Eosinophils (%) (Auto) 1 % (0-3) Basophils (%) (Auto) 0 % (0-3) Neutrophils # (Auto) 7.4 x10^3/uL (1.8-7.7) Lymphocytes # (Auto) 1.7 x10^3/uL (1.0-4.8) Monocytes # (Auto) 0.6 x10^3/uL (0.0-1.1) Eosinophils # (Auto) 0.1 x10^3/uL (0.0-0.7) Basophils # (Auto) 0.0 x10^3/uL (0.0-0.2) Sodium Level 140 mmol/L (136-145) Potassium Level 3.6 mmol/L (3.5-5.1) Chloride Level 103 mmol/L (98-107) Carbon Dioxide Level 26 mmol/L (21-32) Anion Gap 11 (6-14) Blood Urea Nitrogen 16 mg/dL (8-26) Creatinine 1.0 mg/dL (0.7-1.3) Estimated GFR (Cockcroft-Gault) 92.6 Glucose Level 69 mg/dL (70-99) Calcium Level 8.3 mg/dL (8.5-10.1) Laboratory Tests Test 05/18/21 09:00 05/18/21 11:19 05/19/21 04:10 O2 Saturation 99 % (92-99) Arterial Blood pH 7.48 (7.35-7.45) Arterial Blood pCO2 at Patient Temp 30 mmHg (35-46) Arterial Blood pO2 at Patient Temp 139 mmHg (85-108) Arterial Blood HCO3 22 mmol/L (21-28) Arterial Blood Base Excess -1 mmol/L (-3-3) FiO2 40 Glucose (Fingerstick) 107 mg/dL (70-99) White Blood Count 9.8 x10^3/uL (4.0-11.0) Red Blood Count 4.40 x10^6/uL (4.30-5.70) Hemoglobin 13.9 g/dL (13.0-17.5) Hematocrit 40.3 % (39.0-53.0) Mean Corpuscular Volume 92 fL (79-100) Mean Corpuscular Hemoglobin 32 pg (25-35) Mean Corpuscular Hemoglobin Concent 34 g/dL (31-37) Red Cell Distribution Width 13.2 % (11.5-14.5) Platelet Count 157 x10^3/uL (140-400) Neutrophils (%) (Auto) 75 % (31-73) Lymphocytes (%) (Auto) 18 % (24-48) Monocytes (%) (Auto) 6 % (0-9) Eosinophils (%) (Auto) 1 % (0-3) Basophils (%) (Auto) 0 % (0-3) Neutrophils # (Auto) 7.4 x10^3/uL (1.8-7.7) Lymphocytes # (Auto) 1.7 x10^3/uL (1.0-4.8) Monocytes # (Auto) 0.6 x10^3/uL (0.0-1.1) Eosinophils # (Auto) 0.1 x10^3/uL (0.0-0.7) Basophils # (Auto) 0.0 x10^3/uL (0.0-0.2) Sodium Level 140 mmol/L (136-145) Potassium Level 3.6 mmol/L (3.5-5.1) Chloride Level 103 mmol/L (98-107) Carbon Dioxide Level 26 mmol/L (21-32) Anion Gap 11 (6-14) Blood Urea Nitrogen 16 mg/dL (8-26) Creatinine 1.0 mg/dL (0.7-1.3) Estimated GFR (Cockcroft-Gault) 92.6 Glucose Level 69 mg/dL (70-99) Calcium Level 8.3 mg/dL (8.5-10.1) Medications Active Scripts Medications Dose Route/Sig Max Daily Dose Days Date Category Zofran (Ondansetron Hcl) 4 Mg Tablet 1 Tab PO PRN Q6-8HRS 12/21/20 Rx Hydrocodone-Apap 5-325 (Hydrocodone Bit/Acetaminophen) 1 Each Tablet 1 Tab PO PRN Q6HRS 03/19/14 Reported Bactrim 400-80 Mg Tablet (Sulfamethoxazole/Trimethoprim) 1 Each Tablet 2 Each PO BID 03/19/14 Reported Keflex (Cephalexin) 500 Mg Capsule 500 Mg PO QID 03/19/14 Reported Impression . IMPRESSION: 1. Acute respiratory failure secondary to aspiration pneumonia 2. Abnormal chest x-ray, aspiration pneumonia/acute respiratory distress syndrome. 3. Aspiration pneumonia. 4. Drug abuse 5. Acute kidney injury. 6. Recent COVID infection. 7. Smoker. Plan . Updated 05/19 Patient extubated yesterday did well We will switch to Augmentin p.o. Transfer out of the ICU Discharge per PCP The above was discussed with father at the bedside updated 05/18 No significant overnight events Patient on low FiO2 Discussed with RT and RN will discontinue sedation and possibly extubate Hemodynamically stable Discussed with father at the bedside Suspect chest x-ray related to acute lung injury from possible aspiration PLAN AND RECOMMENDATION: 1. Titrate FiO2 to keep O2 saturation 94%, when FiO2 is 50% try to titrate down PEEP. 2. Agree with dexamethasone. 3. Lovenox for DVT prophylaxis. 4. Continue Zosyn. 5. Send sputum for Gram stain and culture. 6. Start Pepcid for stress ulcer prophylaxis. 7. Elevate head of bed. 8. The findings and recommendations were discussed with RN and RT. Thank you very much for allowing me to participate in care of this very nice gentleman. BRYAN PARR MD May 19, 2021 08:57
--- NOTE | 2021-05-19 10:38 | NUR ---
SS following up with discharge planning. SS reviewed pt chart and discussed with pt RN. Pt is currently on room air. COVID19 negative. Pt on IV Zosyn. PAT team met with pt and provided resources and safety plan. Pt was provided with [facility] referral and referrals for counseling options. Probable discharge to home soon when medically ready. SS will continue to follow for discharge planning.
--- NOTE | 2021-05-19 11:48 | PDOC ---
[facility] PROGRESS NOTE Date of Service DOS: DATE: 05/19/21 TIME: 11:47 Chief Complaint Chief Complaint Cardiopulmonary arrest Sepsis Benzodiazepine overdose COVID-19 PUI COVID-19 pneumonia? NIYAH due to vasomotor nephropathy Hyperglycemia Plan: Patient agreed to ICU on ventilator COVID-19 negative Blood cultures pending 1 L normal saline bolus in ER. We will continue IV fluids based on ideal body weight to complete sepsis fluid bolus. Monitor kidney function for improvement after IV fluids We will provide basal insulin and obtain hemoglobin A1c FEN - NPO PPX - Lovenox FULL CODE Dispo - ICU History of Present Illness History of Present Illness Patient is a 25-year-old male with reported past medical history drug abuse, and recent COVID-19 who presents to the ED after being found unresponsive by bystanders. Upon EMS arrival CPR had been started, but when pulses were checked ROSC been obtained and CPR was ceased. Upon arrival to ED he was saturating 83% on nonrebreather with GCS 3. UDS positive for benzodiazepines, cocaine, and cannabis. Chest x-ray showed moderate diffuse pulmonary opacities, which may represent pulmonary edema or pneumonia including viral pneumonia. Labs in the ED showed creatinine 1.5, lactic acid 2.8, WBC 10.6. He required intubation in ER due to hypoxia and not protecting his airway. Initiated on propofol, Versed, and as needed fentanyl. Admit patient to ICU for further medical management. 05/17/2021: Febrile with T-max 100.7 F. D-dimer 2.06. CTA w/o PE, but extensive consolidation of the dependent lungs with groundglass elsewhere; may represent infection with Covid pneumonia, pulmonary edema, ARDS or other multifocal infection. Inflammatory markers not significantly elevated. Rapid COVID-19 negative; COVID-19 PCR negative. Continue empiric treatment with Zosyn, and D/C Decadron. Blood cultures pending. Updated patient's father on current status, lab, and imaging finding; patient's father will be by today to visit. Critical care time 30 minutes spent reviewing labs, reviewing imaging, and discussion with RN. 05/18 No major events overnight. He remained intubated and sedated. Evaluated at bedside this morning with parents at bedside. Informed him we may proceed with attempting extubation today but that will be deferred to the pulmonary team. Covid is negative. Will benefit from PAT consult after extubation. Continue antibiotics for aspiration pneumonia. 05/19 Patient evaluated at bedside. Extubated yesterday without difficulty. He does still have a low level oxygen requirement of 2 L. Suspect this was related to pneumonia. Continue treatment change antibiotics to Augmentin today. Can transfer out of the ICU today. Vitals/I&O Vitals/I&O: Vital Signs Date Time Temp Pulse Resp B/P (MAP) Pulse Ox O2 Delivery O2 Flow Rate FiO2 05/19/21 08:00 Nasal Cannula 2.0 05/19/21 07:21 98.2 88 24 166/107 (126) 93 98.2 I & O 05/18/21 05/18/21 05/19/21 15:00 23:00 07:00 Intake Total 630.06 ml 1601.4 ml 580 ml Output Total 1100 ml 251 ml 1000 ml Balance -469.94 ml 1350.4 ml -420 ml Physical Exam General: No acute distress, Other (Sedated) Heart: Regular rate Lungs: Crackles Abdomen: Soft, No tenderness Extremities: No edema, Normal pulses Skin: No significant lesion Labs Labs: Laboratory Tests Test 05/19/21 04:10 White Blood Count 9.8 x10^3/uL (4.0-11.0) Red Blood Count 4.40 x10^6/uL (4.30-5.70) Hemoglobin 13.9 g/dL (13.0-17.5) Hematocrit 40.3 % (39.0-53.0) Mean Corpuscular Volume 92 fL (79-100) Mean Corpuscular Hemoglobin 32 pg (25-35) Mean Corpuscular Hemoglobin Concent 34 g/dL (31-37) Red Cell Distribution Width 13.2 % (11.5-14.5) Platelet Count 157 x10^3/uL (140-400) Neutrophils (%) (Auto) 75 % (31-73) Lymphocytes (%) (Auto) 18 % (24-48) Monocytes (%) (Auto) 6 % (0-9) Eosinophils (%) (Auto) 1 % (0-3) Basophils (%) (Auto) 0 % (0-3) Neutrophils # (Auto) 7.4 x10^3/uL (1.8-7.7) Lymphocytes # (Auto) 1.7 x10^3/uL (1.0-4.8) Monocytes # (Auto) 0.6 x10^3/uL (0.0-1.1) Eosinophils # (Auto) 0.1 x10^3/uL (0.0-0.7) Basophils # (Auto) 0.0 x10^3/uL (0.0-0.2) Sodium Level 140 mmol/L (136-145) Potassium Level 3.6 mmol/L (3.5-5.1) Chloride Level 103 mmol/L (98-107) Carbon Dioxide Level 26 mmol/L (21-32) Anion Gap 11 (6-14) Blood Urea Nitrogen 16 mg/dL (8-26) Creatinine 1.0 mg/dL (0.7-1.3) Estimated GFR (Cockcroft-Gault) 92.6 Glucose Level 69 mg/dL (70-99) Calcium Level 8.3 mg/dL (8.5-10.1) Assessment and Plan Assessmemt and Plan Problems Medical Problems: (1) Altered mental state Status: Acute (2) Respiratory failure Status: Acute Comment Review of Relevant I have reviewed the following items luis (where applicable) has been applied. Medications: Current Medications Medications (Trade) Dose Ordered Sig/Kris Route PRN Reason Start Time Stop Time Status Last Admin Dose Admin Phenol (Chloraseptic) 1 spray PRN Q2HR PRN PO SORE THROAT 05/18/21 14:30 05/18/21 21:16 Justifications for Admission General Conditions Other justification for admit: Cardiopulmonary arrest, benzodiazepine overdose, COVID-19 PUI Other Justification MEGAN GALLO MD May 19, 2021 11:48
[2021-05-19] MEDS: AMOXICILLIN/K CLAV 875/125MG TABLET. PO SCH ×2 (12:45→21:42)
[2021-05-19] MEDS: hydrALAZINE 20 MG/ML VIAL. IVP PRN (15:28)
[2021-05-19] MEDS: HYDROcodone/APAP 5/325MG 1 TAB TABLET PO PRN ×2 (15:29→21:43)
[2021-05-19] MEDS: ENOXAPARIN 40 MG/0.4 ML SYRINGE. SQ SCH (21:43)
[2021-05-19] MEDS: ONDANSETRON PF 4 MG/2 ML VIAL. IVP PRN (21:55)
[2021-05-20 00:01] VITALS: BP 141/76
[2021-05-20 03:17] VITALS: BP 160/80
[2021-05-20 04:36] LABS: BASO % 1 % (0-3); EOS # 0.3 x10^3/uL (0.0-0.7); EOS % 4 % (0-3); HEMATOCRIT 44.5 % (39.0-53.0); HEMOGLOBIN 15.8 g/dL (13.0-17.5); LYMPH # 1.8 x10^3/uL (1.0-4.8); LYMPH % 21 % (24-48); MEAN CORPUSCULAR HEMOGLOBIN 32 pg (25-35); MEAN CORPUSCULAR HGB CONC 36 g/dL (31-37); MEAN CORPUSCULAR VOLUME 89 fL (79-100); MONO # 0.7 x10^3/uL (0.0-1.1); MONO % 8 % (0-9); NEUT # 5.9 x10^3/uL (1.8-7.7); NEUT % 67 % (31-73); PLATELET COUNT 212 x10^3/uL (140-400); RED BLOOD COUNT 4.98 x10^6/uL (4.30-5.70); RED CELL DISTRIBUTION WIDTH 12.6 % (11.5-14.5); WHITE BLOOD COUNT 8.8 x10^3/uL (4.0-11.0)
[2021-05-20 04:44] LABS: CALCIUM 9.2 mg/dL (8.5-10.1); GFR 92.6; POTASSIUM 3.7 mmol/L (3.5-5.1)
[2021-05-20] MEDS: ONDANSETRON PF 4 MG/2 ML VIAL. IVP PRN (08:34)
[2021-05-20] MEDS: FAMOTIDINE 20 MG/2 ML VIAL IVP SCH (08:37)
[2021-05-20] MEDS: AMOXICILLIN/K CLAV 875/125MG TABLET. PO SCH (08:37)
--- NOTE | 2021-05-20 09:18 | PDOC ---
PULMONARY PROGRESS NOTES DATE: 05/20/21 TIME: 09:17 Subjective Patient slightly nauseated not more short of air cough nonproductive Vitals Vital Signs Date Time Temp Pulse Resp B/P (MAP) Pulse Ox O2 Delivery O2 Flow Rate FiO2 05/20/21 03:17 99.2 56 20 160/80 (106) 95 Room Air 99.2 05/19/21 08:00 2.0 ROS: No Nausea, No Chest Pain, No Abdominal Pain, No Increase Cough Lungs: Crackles Cardiovascular: S1, S2 Abdomen: Soft Extremities: No Edema Skin: Warm, No Rashes Labs Laboratory Tests Test 05/18/21 11:19 05/19/21 04:10 05/20/21 03:25 Glucose (Fingerstick) 107 mg/dL (70-99) White Blood Count 9.8 x10^3/uL (4.0-11.0) 8.8 x10^3/uL (4.0-11.0) Red Blood Count 4.40 x10^6/uL (4.30-5.70) 4.98 x10^6/uL (4.30-5.70) Hemoglobin 13.9 g/dL (13.0-17.5) 15.8 g/dL (13.0-17.5) Hematocrit 40.3 % (39.0-53.0) 44.5 % (39.0-53.0) Mean Corpuscular Volume 92 fL (79-100) 89 fL (79-100) Mean Corpuscular Hemoglobin 32 pg (25-35) 32 pg (25-35) Mean Corpuscular Hemoglobin Concent 34 g/dL (31-37) 36 g/dL (31-37) Red Cell Distribution Width 13.2 % (11.5-14.5) 12.6 % (11.5-14.5) Platelet Count 157 x10^3/uL (140-400) 212 x10^3/uL (140-400) Neutrophils (%) (Auto) 75 % (31-73) 67 % (31-73) Lymphocytes (%) (Auto) 18 % (24-48) 21 % (24-48) Monocytes (%) (Auto) 6 % (0-9) 8 % (0-9) Eosinophils (%) (Auto) 1 % (0-3) 4 % (0-3) Basophils (%) (Auto) 0 % (0-3) 1 % (0-3) Neutrophils # (Auto) 7.4 x10^3/uL (1.8-7.7) 5.9 x10^3/uL (1.8-7.7) Lymphocytes # (Auto) 1.7 x10^3/uL (1.0-4.8) 1.8 x10^3/uL (1.0-4.8) Monocytes # (Auto) 0.6 x10^3/uL (0.0-1.1) 0.7 x10^3/uL (0.0-1.1) Eosinophils # (Auto) 0.1 x10^3/uL (0.0-0.7) 0.3 x10^3/uL (0.0-0.7) Basophils # (Auto) 0.0 x10^3/uL (0.0-0.2) 0.0 x10^3/uL (0.0-0.2) Sodium Level 140 mmol/L (136-145) 140 mmol/L (136-145) Potassium Level 3.6 mmol/L (3.5-5.1) 3.7 mmol/L (3.5-5.1) Chloride Level 103 mmol/L (98-107) 101 mmol/L (98-107) Carbon Dioxide Level 26 mmol/L (21-32) 27 mmol/L (21-32) Anion Gap 11 (6-14) 12 (6-14) Blood Urea Nitrogen 16 mg/dL (8-26) 11 mg/dL (8-26) Creatinine 1.0 mg/dL (0.7-1.3) 1.0 mg/dL (0.7-1.3) Estimated GFR (Cockcroft-Gault) 92.6 92.6 Glucose Level 69 mg/dL (70-99) 74 mg/dL (70-99) Calcium Level 8.3 mg/dL (8.5-10.1) 9.2 mg/dL (8.5-10.1) Laboratory Tests Test 05/20/21 03:25 White Blood Count 8.8 x10^3/uL (4.0-11.0) Red Blood Count 4.98 x10^6/uL (4.30-5.70) Hemoglobin 15.8 g/dL (13.0-17.5) Hematocrit 44.5 % (39.0-53.0) Mean Corpuscular Volume 89 fL (79-100) Mean Corpuscular Hemoglobin 32 pg (25-35) Mean Corpuscular Hemoglobin Concent 36 g/dL (31-37) Red Cell Distribution Width 12.6 % (11.5-14.5) Platelet Count 212 x10^3/uL (140-400) Neutrophils (%) (Auto) 67 % (31-73) Lymphocytes (%) (Auto) 21 % (24-48) Monocytes (%) (Auto) 8 % (0-9) Eosinophils (%) (Auto) 4 % (0-3) Basophils (%) (Auto) 1 % (0-3) Neutrophils # (Auto) 5.9 x10^3/uL (1.8-7.7) Lymphocytes # (Auto) 1.8 x10^3/uL (1.0-4.8) Monocytes # (Auto) 0.7 x10^3/uL (0.0-1.1) Eosinophils # (Auto) 0.3 x10^3/uL (0.0-0.7) Basophils # (Auto) 0.0 x10^3/uL (0.0-0.2) Sodium Level 140 mmol/L (136-145) Potassium Level 3.7 mmol/L (3.5-5.1) Chloride Level 101 mmol/L (98-107) Carbon Dioxide Level 27 mmol/L (21-32) Anion Gap 12 (6-14) Blood Urea Nitrogen 11 mg/dL (8-26) Creatinine 1.0 mg/dL (0.7-1.3) Estimated GFR (Cockcroft-Gault) 92.6 Glucose Level 74 mg/dL (70-99) Calcium Level 9.2 mg/dL (8.5-10.1) Medications Active Scripts Medications Dose Route/Sig Max Daily Dose Days Date Category Zofran (Ondansetron Hcl) 4 Mg Tablet 1 Tab PO PRN Q6-8HRS 12/21/20 Rx Hydrocodone-Apap 5-325 (Hydrocodone Bit/Acetaminophen) 1 Each Tablet 1 Tab PO PRN Q6HRS 7/22/14 Reported Bactrim 400-80 Mg Tablet (Sulfamethoxazole/Trimethoprim) 1 Each Tablet 2 Each PO BID 03/19/14 Reported Keflex (Cephalexin) 500 Mg Capsule 500 Mg PO QID 03/19/14 Reported Impression . IMPRESSION: 1. Acute respiratory failure secondary to aspiration pneumonia 2. Abnormal chest x-ray, aspiration pneumonia/acute respiratory distress syndrome. 3. Aspiration pneumonia. 4. Drug abuse 5. Acute kidney injury. 6. Recent COVID infection. 7. Smoker. Plan . Updated 05/[address] Benz Discharge on Augmentin Follow-up with PCP Updated 05/19 Patient extubated yesterday did well We will switch to Augmentin p.o. Transfer out of the ICU Discharge per PCP The above was discussed with father at the bedside BRYAN PARR MD May 20, 2021 09:18
[2021-05-20 09:45] VITALS: BP 176/101
[2021-05-20] MEDS: hydrALAZINE 20 MG/ML VIAL. IVP PRN (10:10)
[2021-05-20] MEDS ORDERED: AMOX1TAB11 PO (11:11)
[2021-05-20] MEDS ORDERED: ONDA4TAB12 PO (11:11)
[2021-05-20 11:15] VITALS: BP 171/97
--- NOTE | 2021-05-20 11:16 | PDOC3 ---
[facility]-Discharge Summary Date of Admission: Date of Admission: May 16, 2021 Date of Discharge: Date of Discharge: May 20, 2021 Admission Diagnosis: Problems: (1) Benzodiazepine overdose (2) Respiratory failure (3) Cardiopulmonary arrest Discharge Diagnosis: Discharge Diagnosis: Same Consults: Consults: Pulmonary, PAT team Hospital Course: Hospital Course: Chief Complaint Cardiopulmonary arrest Sepsis Benzodiazepine overdose COVID-19 PUI COVID-19 pneumonia? NIYAH due to vasomotor nephropathy Hyperglycemia Plan: Patient agreed to ICU on ventilator COVID-19 negative Blood cultures pending 1 L normal saline bolus in ER. We will continue IV fluids based on ideal body weight to complete sepsis fluid bolus. Monitor kidney function for improvement after IV fluids We will provide basal insulin and obtain hemoglobin A1c FEN - NPO PPX - Lovenox FULL CODE Dispo - ICU History of Present Illness History of Present Illness Patient is a 25-year-old male with reported past medical history drug abuse, and recent COVID-19 who presents to the ED after being found unresponsive by bystanders. Upon EMS arrival CPR had been started, but when pulses were checked ROSC been obtained and CPR was ceased. Upon arrival to ED he was saturating 83% on nonrebreather with GCS 3. UDS positive for benzodiazepines, cocaine, and cannabis. Chest x-ray showed moderate diffuse pulmonary opacities, which may represent pulmonary edema or pneumonia including viral pneumonia. Labs in the ED showed creatinine 1.5, lactic acid 2.8, WBC 10.6. He required intubation in ER due to hypoxia and not protecting his airway. Initiated on propofol, Versed, and as needed fentanyl. Admit patient to ICU for further medical management. 05/17/2021: Febrile with T-max 100.7 F. D-dimer 2.06. CTA w/o PE, but extensive consolidation of the dependent lungs with groundglass elsewhere; may represent infection with Covid pneumonia, pulmonary edema, ARDS or other multifocal infection. Inflammatory markers not significantly elevated. Rapid COVID-19 negative; COVID-19 PCR negative. Continue empiric treatment with Zosyn, and D/C Decadron. Blood cultures pending. Updated patient's father on current status, lab, and imaging finding; patient's father will be by today to visit. Critical care time 30 minutes spent reviewing labs, reviewing imaging, and discussion with RN. 05/18 No major events overnight. He remained intubated and sedated. Evaluated at [facility] this morning with parents at bedside. Informed him we may proceed with attempting extubation today but that will be deferred to the pulmonary team. Covid is negative. Will benefit from PAT consult after extubation. Continue antibiotics for aspiration pneumonia. 05/19 Patient evaluated at bedside. Extubated yesterday without difficulty. He does still have a low level oxygen requirement of 2 L. Suspect this was related to pneumonia. Continue treatment change antibiotics to Augmentin today. Can transfer out of the ICU today. 05/20 Patient valuated at bedside. Complaining of some nausea. We will plan for discharge home today. Can finish Augmentin outpatient. Disposition: Disposition/Orders: D/C to Home Activity: Activity: Resume previous activity Diet: Diet: Regular Medications: Home Meds Active Scripts Ondansetron (ONDANSETRON ODT) 4 Mg Tab.rapdis, 1 TAB PO PRN Q6-8HRS for N/V, #20 TAB Prov:MEGAN GALLO MD 05/20/21 Amoxicillin/Potassium Clav (AMOX TR-K CLV 875-125 MG TAB) 1 Each Tablet, 1 TAB PO BID for pneumonia for 10 Days, #20 TAB Prov:MEGAN GALLO MD 05/20/21 Reported Medications Hydrocodone Bit/Acetaminophen (HYDROCODONE-APAP 5-325 ) 1 Each Tablet, 1 TAB PO PRN Q6HRS for PAIN, TAB 0 Refills 03/19/14 Discontinued Reported Medications Sulfamethoxazole/Trimethoprim (BACTRIM 400-80 MG TABLET) 1 Each Tablet, 2 EACH PO BID 03/19/14 Cephalexin (KEFLEX) 500 Mg Capsule, 500 MG PO QID, CAP 03/19/14 Discontinued Scripts Ondansetron Hcl (ZOFRAN) 4 Mg Tablet, 1 TAB PO PRN Q6-8HRS for nausea, #12 TAB Prov:MELISSA LIM MD 12/21/20 Scheduled Amoxicillin/Potassium Clav (Amox Tr-K Clv 875-125 Mg Tab), 1 TAB PO BID Hydrocodone Bit/Acetaminophen (Hydrocodone-Apap 5-325 ), 1 TAB PO PRN Q6HRS, (Reported) Ondansetron (Ondansetron Odt), 1 TAB PO PRN Q6-8HRS Discontinued Medications Cephalexin (Keflex), 500 MG PO QID, (Reported) Ondansetron Hcl (Zofran), 1 TAB PO PRN Q6-8HRS Sulfamethoxazole/Trimethoprim (Bactrim 400-80 Mg Tablet), 2 EACH PO BID, (Repo rted) Justicifation of Admission Dx: Justifications for Admission: Justification of Admission Dx: Yes (Cardiac arrest) MEGAN GALLO MD May 20, 2021 11:16
[2021-05-20 13:59] VITALS: BP 156/73
[2021-05-20] MEDS: HYDROcodone/APAP 5/325MG 1 TAB TABLET PO PRN (14:19)
[2021-05-20] MEDS ORDERED: LACTOBACILLUS RHAMNOSUS GG 1 CAPSULE. PO SCH (21:00)
[2021-05-20] MEDS ORDERED: FAMOTIDINE 20 MG TABLET. PO SCH (21:00)
== END 2021-05-20 14:35 | disposition home or self-care (01) | DRG 871 ==
LOC: ER 17:29 → 1 WEST ICU 18:10
PROVIDERS: ADMIT Family Medicine; ATTEND Family Medicine
PROC: 5A1945Z Respiratory Ventilation, 24-96 Consecutive Hours (ICD-10-PCS; principal; 2021-05-16)
PROC: 0BH17EZ Insertion of Endotracheal Airway into Trachea, Via Natural or Artificial Opening (ICD-10-PCS; 2021-05-16)
DX: A41.9 Sepsis, unspecified organism (principal); J69.0 Pneumonitis due to inhalation of food and vomit; N17.0 Acute kidney failure with tubular necrosis; I46.9 Cardiac arrest, cause unspecified; J80 Acute respiratory distress syndrome; F17.210 Nicotine dependence, cigarettes, uncomplicated; T42.4X1A Poisoning by benzodiazepines, accidental (unintentional), initial encounter; Z20.822 Contact with and (suspected) exposure to COVID-19; R73.9 Hyperglycemia, unspecified; F12.10 Cannabis abuse, uncomplicated; F14.10 Cocaine abuse, uncomplicated; Z82.49 Family history of ischemic heart disease and other diseases of the circulatory system; Z86.16 Personal history of COVID-19; Y92.89 Other specified places as the place of occurrence of the external cause
CPT/HCPCS: 31500; 31720; 36415; 36600; 51702; 70450; 71045; 71275; 72125; 80048; 80053; 80307; 80329; 81001; 82550; 82728; 82805; 82962; 83036; 83605; 83615; 83735; 83880; 84484; 85007; 85025; 85379; 86140; 87040; 87426; 94002; 94003; 94760; 96361; 96374; G0480; J0330; J0360; J0610; J1100; J1650; J1815; J2060; J2250; J2405; J2543; J2704; J3010; J3490; J7030; Q9967; U0003; U0005; 99291-25; G0378

== ENCOUNTER 2021-09-24 12:03 | Emergency (ER) | payer BC, OTHER ==
[~2021-09-24] VITALS: Ht 175.3 cm; Wt 86.3 kg
[~2021-09-24 12:03] MED LIST changes: +AMOX1TAB11 PO; +ONDA4TAB12 PO
[2021-09-24] MEDS ORDERED: DIPHTH,PERTUSS(ACELL),TET TOX 0.5 ML DISP.SYRIN. VAX IM ONE (13:00)
--- NOTE | 2021-09-24 13:08 | PHYS DOC ---
Past Medical History Past Medical History: Other Additional Past Medical Histor: covid; vomiting (ELBERT CYR APRN) Past Surgical History: No Surgical History (ELBERT CYR APRN) Smoking Status: Current Every Day Smoker Alcohol Use: Occasionally (ELBERT CYR APRN) General Adult EDM: Chief Complaint: FACE PAIN HPI: HPI: Patient is a 25-year-old male who presents today with facial trauma. Patient states that he was working with an air compressor holes and trying to disconnect a piece of equipment from it and he said the hose flipped back and hit him in the face and the upper lip area and the nose. Patient states this happened a bout 1130. He had no loss of consciousness. Patient states he has chipped a couple teeth during this incident, and he does have a primary dentist Dr. Cisneros. Patient states he is unknown when his last tetanus shot was. (ELBERT CYR APRN) Review of Systems: Review of Systems: Constitutional: Denies fever or chills. [] Eyes: Denies change in visual acuity. [] HENT: Lip contusion, chipped teeth Respiratory: Denies cough or shortness of breath. [] Cardiovascular: Denies chest pain or edema. [] GI: Denies abdominal pain, nausea, vomiting, bloody stools or diarrhea. [] : Denies dysuria. [] Musculoskeletal: Denies back pain or joint pain. [] Integument: Denies rash. [] Neurologic: Denies headache, focal weakness or sensory changes. [] Endocrine: Denies polyuria or polydipsia. [] Lymphatic: Denies swollen glands. [] Psychiatric: Denies depression or anxiety. [] (ELBERT CYR FLOORPERSON) Heart Score: C/O Chest Pain: N/A Risk Factors: Risk Factors: DM, Current or recent (<one month) smoker, HTN, HLP, family history of CAD, obesity. Risk Scores: Score 0 - 3: 2.5% MACE over next 6 weeks - Discharge Home Score 4 - 6: 20.3% MACE over next 6 weeks - Admit for Clinical Observation Score 7 - 10: 72.7% MACE over next 6 weeks - Early Invasive Strategies (ELBERT CYR APRN) Current Medications: Current Medications Medications (Trade) Dose Ordered Sig/Kris Start Time Stop Time Status Last Admin Dose Admin Diphtheria/ Tetanus/Acell Pertussis (Boostrix) 0.5 ml ONCE ONCE 09/24/21 13:00 09/24/21 13:01 (ELBERT CYR APRN) Allergies: Allergies: Allergies Coded Allergies Type Severity Reaction Last Updated Verified No Known Drug Allergies 03/19/14 No (ELBERT CYR APRN) Physical Exam: PE: Constitutional: Well developed, well nourished, no acute distress, non-toxic appearance. [] HENT: Normocephalic, contusion noted to upper lip on left side, 0.5cm laceration noted on the inner lip that is not a through and through. chip teeth noted on the front tooth and the incision on the left. no maloccusion noted. no loose teeth noted. abrasion noted on the left nose with no pain with palpation noted. No nasal septum hematoma noted Eyes: PERRLA, EOMI, conjunctiva normal, no discharge. [] Neck: Normal range of motion, no tenderness, supple, no stridor. [] Cardiovascular:Heart rate regular rhythm, no murmur [] Lungs & Thorax: Bilateral breath sounds clear to auscultation [] Abdomen: Bowel sounds normal, soft, no tenderness, no masses, no pulsatile masses. [] Skin: Warm, dry, no erythema, no rash. [] Back: No tenderness, no CVA tenderness. [] Extremities: No tenderness, no cyanosis, no clubbing, ROM intact, no edema. [] Neurologic: Alert and oriented X 3, normal motor function, normal sensory function, no focal deficits noted. [] Psychologic: Affect normal, judgement normal, mood normal. [] (ELBERT CYR APRN) Current Patient Data: Vital Signs: Vital Signs Date Time Temp Pulse Resp B/P (MAP) Pulse Ox O2 Delivery O2 Flow Rate FiO2 09/24/21 12:06 98.6 75 17 154/85 (108) 98 Room Air 98.6 (ELBERT CYR APRN) EKG: EKG: [] (ELBERT CYR APRN) Radiology/Procedures: Radiology/Procedures: [REASON: HIT IN FACE WITH AIR COMPRESSOR HOSE PROCEDURE: CT HEAD AND MAXILLOFACIAL WO STUDY: 1. CT head without contrast 2. CT maxillofacial without contrast INDICATION: Trauma to the face. COMPARISON: CT head 05/16/2021 TECHNIQUE: Axial CT imaging of the head and maxillofacial structures performed without the use of intravenous contrast. Sagittal and coronal reformats were obtained. One or more of the following individualized dose reduction techniques were utilized for this examination: 1. Automated exposure control 2. Adjustment of the mA and/or kV according to patient size 3. Use of iterative reconstruction technique. FINDINGS: CT HEAD: No acute intracranial hemorrhage. Saez-white matter differentiation is maintained. No mass effect, midline shift or hydrocephalus. Intact calvarium. Normally aerated mastoid air cells and middle ears. CT MAXILLOFACIAL: Subtle fracture of the nasal process of the maxilla on the left with minimal inward depression and no significant displacement, image 238 series 6. No additional facial bone fracture is identified. Temporomandibular joint alignment is anatomic. The upper cervical spine is intact. Symmetric positioning of the globes. No retrobulbar hematoma. Minimal maxillary sinus mucosal thickening. Unremarkable deeper spaces of the imaged neck. Patent airway. No lymphadenopathy. IMPRESSION: CT HEAD: 1. Unremarkable head CT. CT MAXILLOFACIAL: 1. Subtle fracture of the nasal process of the maxilla on the left with slight inward depression but no significant displacement (reference image 238 series 6). No fracture seen elsewhere. Unremarkable CT appearance of the orbits/globes. Electronically signed by: ARNULFO RUSSELL MD (09/24/2021 1:37 PM) [facility] (ELBERT CYR APRN) Course & Med Decision Making: Course & Med Decision Making Pertinent Labs and Imaging studies reviewed. (See chart for details) 1400 call made to the [facility] transfer team due to patient's maxilla fracture. They are to call back for further follow-up. 1440 Dr. Viry Bear from the [facility] did return my call/her clinic facial plastics clinic is agreeable to seeing the patient on an outpatient basis. Contact information was given to Dr. Neville if patient has not heard from the office by early next week patient is to call [phone] Prince. Patient is also instructed to do oral rinses with salt water follow-up with his primary care physician dentist for further management of his broken teeth and ice pack to that area to control swelling. (ELBERT CYR APRN) Tyree Disclaimer: Tyree Disclaimer: This electronic medical record was generated, in whole or in part, using a voice recognition dictation system. (ELBERT CYR APRN) Departure Departure Impression: Primary Impression: Maxillary fracture, left side, initial encounter for closed fracture Additional Impressions: Contusion of lip, initial encounter Chipped tooth Qualified Codes: S02.5XXB - Fracture of tooth (traumatic), initial encounter for open fracture Disposition: HOME / SELF CARE / HOMELESS Condition: STABLE Referrals: MEGAN WOLF (PCP) Patient Instructions: Diet - Fractured Jaw, Mouth Injury, Generic, Teeth and Gum Care, Lfrg-er-[id number] Additional Instructions: Eat soft diet Rinse mouth out after every meal with salt water and in the evenings. Continue to brush teeth as directed Follow-up with your primary dentist Dr. Cisneros for further management of your chipped teeth. [facility] facial plastics clinic should be calling you but if they have not called by middle of next week call [phone]. Ask for Dr. Goodman and say that you were seen at [place] emergency department and you referred to that clinic. Ice pack 20 minutes on 3-4 times daily for swelling and pain Tylenol and/or ibuprofen as needed for pain. Attending Signature Attending Signature I have reviewed the PA/PATIENT REGISTRAR's note and plan of care. I was available for consultation as needed during the patient's visit in the emergency department. I agree with the clinical impression, plan, and disposition. (DANIELLE LOERA DO) ELBERT CYR APRN Sep 24, 2021 13:08 DANIELLE LOERA DO Sep 25, 2021 07:27
--- NOTE | 2021-09-24 13:40 | RAD ---
STUDY: 1. CT head without contrast 2. CT maxillofacial without contrast INDICATION: Trauma to the face. COMPARISON: CT head 05/16/2021 TECHNIQUE: Axial CT imaging of the head and maxillofacial structures performed without the use of int ravenous contrast. Sagittal and coronal reformats were obtained. One or more of the following individualized dose reduction techniques were utilized for this examinat ion: 1. Automated exposure control 2. Adjustment of the mA and/or kV according to patient size 3. Use of iterative reconstruction technique. FINDINGS: CT HEAD: No acute intracranial hemorrhage. Saez-white matter differentiation is maintained. No mass effect, mi dline shift or hydrocephalus. Intact calvarium. Normally aerated mastoid air cells and middle ears. CT MAXILLOFACIAL: Subtle fracture of the nasal process of the maxilla on the left with minimal inward depression and no significant displacement, image 238 series 6. No additional facial bone fracture is identified. Temp oromandibular joint alignment is anatomic. The upper cervical spine is intact. Symmetric positioning of the globes. No retrobulbar hematoma. Minimal maxillary sinus mucosal thickening. Unremarkable deeper spaces of the imaged neck. Patent airway. No lymphadenopathy. IMPRESSION: CT HEAD: 1. Unremarkable head CT. CT MAXILLOFACIAL: 1. Subtle fracture of the nasal process of the maxilla on the left with slight inward depression but no significant displacement (reference image 238 series 6). No fracture seen elsewhere. Unremarkable CT appearance of the orbits/globes. Electronically signed by: ARNULFO RUSSELL MD (09/24/2021 1:37 PM) [facility]
[2021-09-24 13:53] VITALS: BP 153/77
== END 2021-09-24 15:17 | disposition home or self-care (01) ==
LOC: ER 12:03
DX: S02.40DA Maxillary fracture, left side, initial encounter for closed fracture (principal); S02.5XXA Fracture of tooth (traumatic), initial encounter for closed fracture; S00.531A Contusion of lip, initial encounter; F17.200 Nicotine dependence, unspecified, uncomplicated; R51.9 Headache, unspecified; W22.8XXA Striking against or struck by other objects, initial encounter; Y93.89 Activity, other specified; Y92.89 Other specified places as the place of occurrence of the external cause; Y99.8 Other external cause status
CPT/HCPCS: 70450; 70486; 90471; 90715; 99284-25